=== PATIENT | female | born 1935 | race Caucasian/White ===

== ENCOUNTER 2019-02-18 06:38 | Observation (INO) ==
[2019-02-18] MEDS ORDERED: Naloxone 0.4 MG/ML INJ IVP PRN ×2 (10:29)
[2019-02-18] MEDS ORDERED: OXYCODONE Oral CONC 10 MG/0.5 ML ORAL.SYG SL PRN (10:29)
[2019-02-18] MEDS ORDERED: Ondansetron ODT 4 MG TAB.RAPDIS SL PRN (10:29)
[2019-02-18] MEDS ORDERED: Acetaminophen 325 MG TABLET PO PRN (10:29)
--- NOTE | 2019-02-18 10:33 | Internal Med History&Physical ---
Date of Encounter: 02/18/19 Time of Encounter: 10:33 Internal Medicine - H&P: HPI Chief complaint: abdominal pain History of present illness: Ms. Guzman is a 83 year old female with PMH recurrent UTI, diverticulosis and large hiatal hernia, GERD currently not on PPI who presents with 2 episode of hematemesis. associated with epigastric abdominal pain that is radiating to her chest and left shoulder as well as nausea vomiting and decreased appetite. The patient has chronic arthritis and report frequent use of nonsteroidal anti- inflammatory, the patient denied dark stool or blood per rectum. Reviewing his record revealed the current UA tract infection that was treated recently as an outpatient with antibiotic as better urology recommendation. The patient was admitted for further evaluation and management of hematemesis. Acute surgery service was consulted and arrangements were made to perform upper endoscopy. Past Med Surg Social Fam HX - Past Medical History Medical history: arthritis Psychiatric history: no psych history - Past Surgical History Additional surgical history: knee, wrist x2 - Social History Smoking Status: Former smoker Smokeless Tobacco Status: No Alcohol use: rarely Drug use: none Internal Medicine - H&P: Meds Acetaminophen [Tylenol] 650 mg PO Q6HR PRN #0 tablet 02/19/19 [Rx] Aspirin [Adult Aspirin] 81 mg PO DAILY 02/19/19 [History] Ferrous Sulfate [Iron] 325 mg PO DAILY 02/19/19 [History] Lansoprazole [Prevacid] 30 mg PO BIDAC #60 capsule. 02/19/19 [Rx] Sucralfate [Carafate] 1 gm PO QIDAC #120 tablet 02/19/19 [Rx] Allergy/AdvReac Type Severity Reaction Status Date / Time cetirizine [From Zyrtec] AdvReac See Verified 02/19/19 11:12 Comments All Systems PM: A 10-system review of systems was performed and is negative for pertinent findings except as documented above in the HPI. - Constitutional Constitutional: no chills, no fever(s), no night sweats - EENT Eyes: no change in vision, no discharge, no pain, no photophobia Ears: no ear discharge, no ear pain, no tinnitus Nose, mouth and throat: no dysphagia, no nasal discharge, no neck pain, no sore throat - Cardiovascular Cardiovascular ROS IM: no chest pain, no diaphoresis, no dyspnea, no lightheadedness, no palpitations, no syncope - Respiratory Respiratory: no cough, no dyspnea, no wheezing, no excessive phlegm production - Gastrointestinal Gastrointestinal: abdominal pain, heartburn, hematemesis, nausea, vomiting, no diarrhea, no hematochezia, no melena - Genitourinary Genitourinary: dysuria, no change in urinary stream, no flank pain, no hematuria - Musculoskeletal Musculoskeletal ROS IM: no numbness, no tingling - Integumentary Integumentary IM: no rash, no unusual bruising - Neurological Neurological ROS: no confusion, no convulsions, no focal weakness, no numbness, no tingling, no tremor(s) - Hematologic/Lymphatic Hematologic/Lymphatic: no easy bruising - Constitutional Vitals: Temp Pulse Resp BP Pulse Ox 97.9 F 80 16 100/62 94 02/18/19 09:36 02/18/19 09:36 02/18/19 09:36 02/18/19 09:36 02/18/19 09:36 Exam: . Internal Med - H&P Results - Labs CBC & Chem 7: 02/19/19 09:04 02/19/19 03:32 - Assessment and Plan (1) Hematemesis Status: Resolved Assessment and plan: Upper GI bleeding DD *Gastroenteritis *Gastritis *PUD PLAN: - IVF - NPO - H/H now and q 8 hr - Type and screen 2 U PRBC - Protonix 40 mg IV QD/BID - GI consult-> EGD/Colonoscopy - O2 to keep SpO2 > 92% - CBCD, BMP, INR/PTT in AM - Compression stocking BLE for DVT prophylaxis - We will consulted acute surgical service, the patient is scheduled for upper endoscopy today. I appreciate the prompt response and input Qualifiers: Nausea presence: with nausea Qualified Code(s): K92.0 - Hematemesis (2) Recurrent urinary tract infection Status: Ruled-out Assessment and plan: We would obtain urinalysis, the patient currently is asymptomatic (3) GERD (gastroesophageal reflux disease) Status: Acute Assessment and plan: We will continue proton pump inhibitors Qualifiers: Esophagitis presence: with esophagitis Qualified Code(s): K21.0 - Gastro- esophageal reflux disease with esophagitis (4) Chronic arthritis Status: Acute Assessment and plan: The patient was advised to stop taking nonsteroidal anti-inflammatory for now and consider taking Tylenol extra (5) DVT prophylaxis Status: Acute Assessment and plan: We will place SCDs - Time Spent With Patient Total time spent is greater than 50% in coordination of care (as documented) at patient's floor/unit and/or counseling patient:
[2019-02-18] MEDS: 0.9 % Sodium Chloride 1,000 ML IVC SCH (11:00)
[2019-02-18 11:43] LABS: Basophils % 0.4 %; Eosinophils % 0.1 %; Hematocrit 32.2 % (35.3-44.9); Immature Granulocytes % 0.4 % (0-4); Lymphocytes # 1.2 K/mcL (0.6-4.6); Mean Corpuscular HGB Conc 31.4 g/dL (31.6-35.5); Mean Corpuscular Hemoglobin 29.1 pg (28.0-33.3); Mean Corpuscular Volume 92.8 fL (83.0-100.0); Monocytes # 0.7 K/mcL (0.0-1.3); Monocytes % 6.2 %; Neutrophils # 9.1 K/mcL (1.6-8.9); Platelet Count 410 K/mcL (140-400); Red Blood Count 3.47 M/mcL (3.82-4.97); Red Cell Distribution Width 14.2 % (11.5-14.5); Segmented Neutrophils % 81.9 %
[2019-02-18 11:44] LABS: Hemoglobin 10.1 g/dL (11.5-15.4)
[2019-02-18 12:21] LABS: Bilirubin,Urine Negative (Negative); Blood,Urine Negative (Negative); Clarity,Urine Clear (Clear); Color,Urine Yellow (Yellow); Glucose,Urine (UA) Normal (Normal); Ketones,Urine Negative (Negative); Leukocyte Esterase,Urine Negative (Negative); Nitrite,Urine Negative (Negative); PH,Urine 6.5 pH Units (5.0-8.0); Protein,Urine Negative (Neg-Trace); Specific Gravity,Urine > 1.030 (1.010-1.025); Urobilinogen,Urine Normal (Normal)
[2019-02-18 14:30] LABS: INR 1.1; Prothrombin Time 12.5 Seconds (9.4-12.1)
[2019-02-18 14:32] LABS: Activated Partial Thrombo Time 30.7 Seconds (26.0-36.0)
--- NOTE | 2019-02-18 14:59 | AcuteCare Surgery Consult Note ---
<Francisco Chambers N - Last Filed: 02/18/19 14:55> Date of Encounter: 02/18/19 Time of Encounter: 14:55 Assessment and Plan (1) Hematemesis Current Visit: Yes Status: Acute -83-year-old female with past medical history of GERD and a large hiatal hernia presenting for 1 day history of nausea, vomiting, and coffee-ground emesis -Patient reports heavy profuse over the past few months of 800 mg 1-2 times daily -Denies any history of anticoagulant use, liver disease, melena, hematochezia, or prior peptic ulcer disease or GI bleeds -Plan for EGD today, explained all risks and benefits of the procedure to the patient and patient is in agreement with the plan -Recommend IV PPI and Carafate Qualifiers: Nausea presence: with nausea Qualified Code(s): K92.0 - Hematemesis History of Present Illness Consult date: 02/18/19 History of present illness: Patient is an 83-year-old female with a history of a large hiatal hernia and GERD currently not on PPI who presents to [facility] from [facility] for concerns for hematemesis. Patient reports 1 day history of epigastric abdominal pain radiating to her chest and left shoulder. This is associated with nausea, decreased appetite, and vomiting. Patient reports one episode of vomitus with dark coffee-ground material. The amount of hematemesis progressively decreased but her pain and nausea persisted prompting her to visit the emergency department at [facility]. Patient does report heavy ibuprofen use, stating that she has been taking ibuprofen 800 mg 1-2 times daily for the past few months. She denies any history of liver disease, denies any anticoagulant use, or prior peptic ulcer or GI bleeds. She does state that her stool is dark but attributes that to iron, denies any dark tarry stools. Past Med Surg Social Fam HX - Past Medical History Medical history: arthritis Psychiatric history: no psych history - Past Surgical History Additional surgical history: knee, wrist x2 - Social History Smoking Status: Former smoker Smokeless Tobacco Status: No Alcohol use: rarely Drug use: none Medications and Allergies Allergy/AdvReac Type Severity Reaction Status Date / Time cetirizine [From Zyrtec] AdvReac See Verified 02/02/19 19:44 Comments Review of Systems All systems PM: The remainder of the systems were reviewed and are negative - Constitutional no chills, no fever(s) - Cardiovascular no chest pain - Respiratory no dyspnea - Gastrointestinal abdominal pain, hematemesis, nausea, vomiting, no diarrhea, no hematochezia, no melena - Genitourinary Genitourinary: dysuria - Musculoskeletal arthralgias General Surgery Exam Initial Vital Signs Temp Pulse Resp BP Pulse Ox 97.9 F 80 16 100/62 94 02/18/19 09:36 02/18/19 09:36 02/18/19 09:36 02/18/19 09:36 02/18/19 09:36 - General physical appearance well developed, well nourished - Eyes PERRL, normal ocular movement - ENT normal pinna, normal nares - Neck trachea midline, no venous distension - Respiratory normal expansion, normal respiratory effort - Cardiovascular Cardiovascular exam: Present: RRR - Abdomen Abdomen general surgery: Present: bowel sounds present, soft, tender (Mild tenderness to deep palpation of the epigastric region) - Integumentary Integumentary general surgery: Present: warm and dry - Musculoskeletal Present: normal posture - Psychiatric Psychiatric general surgery: Present: A&Ox3, appropriate Exam Initial Vital Signs Temp Pulse Resp BP Pulse Ox 97.9 F 80 16 100/62 94 02/18/19 09:36 02/18/19 09:36 02/18/19 09:36 02/18/19 09:36 02/18/19 09:36 Results - Labs 02/18/19 11:20 Abnormal lab results RBC 3.47 M/mcL (3.82-4.97) L 02/18/19 11:20 Hgb 10.1 g/dL (11.5-15.4) L D 02/18/19 11:20 Hct 32.2 % (35.3-44.9) L 02/18/19 11:20 MCHC 31.4 g/dL (31.6-35.5) L 02/18/19 11:20 Plt Count 410 K/mcL (140-400) H 02/18/19 11:20 9.1 K/mcL (1.6-8.9) H 02/18/19 11:20 PT 12.5 Seconds (9.4-12.1) H 02/18/19 14:00 Ur Specific [place] > 1.030 (1.010-1.025) H 02/18/19 12:07 All other labs normal. <Brenton Rivers M - Last Filed: 02/18/19 15:19> Date of Encounter: 02/18/19 Review of Systems All systems PM: The remainder of the systems were reviewed and are negative General Surgery Exam Initial Vital Signs Temp Pulse Resp BP Pulse Ox 97.9 F 80 16 100/62 94 02/18/19 09:36 02/18/19 09:36 02/18/19 09:36 02/18/19 09:36 02/18/19 09:36 Exam Initial Vital Signs Temp Pulse Resp BP Pulse Ox 97.9 F 80 16 100/62 94 02/18/19 09:36 02/18/19 09:36 02/18/19 09:36 02/18/19 09:36 02/18/19 09:36 Results - Labs 02/18/19 11:20 Abnormal lab results RBC 3.47 M/mcL (3.82-4.97) L 02/18/19 11:20 Hgb 10.1 g/dL (11.5-15.4) L D 02/18/19 11:20 Hct 32.2 % (35.3-44.9) L 02/18/19 11:20 MCHC 31.4 g/dL (31.6-35.5) L 02/18/19 11:20 Plt Count 410 K/mcL (140-400) H 02/18/19 11:20 9.1 K/mcL (1.6-8.9) H 02/18/19 11:20 PT 12.5 Seconds (9.4-12.1) H 02/18/19 14:00 Ur Specific [place] > 1.030 (1.010-1.025) H 02/18/19 12:07 All other labs normal. - Attending Attestation I examined this patient and my medical decision-making was reviewed with the Resident Physician. I agree with the documented findings, disposition and treatment plan as described except to the extent set forth below. I reviewed the above assessment and evaluation and agree with the above plan. Patient had history of hematemesis yesterday. She does note dark stool but does take iron supplements. She denies any actual blood in the stool. She has some tendernes in the epigastric and left upper quadrant but no tenderness to palpation on examination. I splayed to the patient had think it would be appropriate to proceed with an EGD with IVs sedation. The patient agrees with the above plan.
[2019-02-18] MEDS ORDERED: *HR* FentaNYL (PF) 100 MCG/2 ML VIAL ONE (15:39)
[2019-02-18] MEDS ORDERED: *HR* Midazolam HCl 5 MG/5 ML VIAL IVP ONE ×2 (15:39→15:47)
[2019-02-18] MEDS ORDERED: *HR* FentaNYL (PF) 100 MCG/2 ML VIAL IVP ONE (15:47)
[2019-02-18] MEDS ORDERED: Tetracaine/Benzocaine/Butamben 1 SPRAY AEROSOL MM ONE (15:47)
[2019-02-18] MEDS ORDERED: *HR* Promethazine 25 MG/ML VIAL IVP ONE (15:47)
[2019-02-18] MEDS ORDERED: Simethicone 40 MG/0.6 ML MLS IR ONE (15:47)
--- NOTE | 2019-02-18 15:48 | Pre-Sedation Evaluation ---
Pre-sedation evaluation - Pre-sedation checklist Recent Vitals: Last Vital Signs Temp 98.2 F 02/18/19 14:38 Pulse 73 02/18/19 14:38 Resp 16 02/18/19 14:38 BP 102/61 02/18/19 14:38 Pulse Ox 93 02/18/19 14:38 Airway Assessment: Patient can open mouth completely, TMJ function normal Possible difficult airway: No ASA Classification *see protocol: CLASS III-Severe systemic disease Plan of Care: Pt appropriate candidate for procedure/moderate/conscious sedation
--- NOTE | 2019-02-18 16:24 | Event Note ---
Date of Encounter: 02/18/19 Time of Encounter: 16:22 She underwent EGD without difficulty. Evidence of a very large hiatal hernia with majority of the stomach above the diaphragm. Some slight irritation at the GE junction with no blood within the lumen. Biopsies obtained of the junction. Await pathology results. Okay to advance diet. We will sign off, thank you.
[2019-02-18 18:49] LABS: Basophils # 0.1 K/mcL (0.0-0.2); Basophils % 0.6 %; Eosinophils # 0.1 K/mcL (0.0-0.6); Eosinophils % 0.9 %; Hematocrit 34.8 % (35.3-44.9); Hemoglobin 10.4 g/dL (11.5-15.4); Immature Granulocytes % 0.2 % (0-4); Lymphocytes # 2.1 K/mcL (0.6-4.6); Lymphocytes % 24.1 %; Mean Corpuscular HGB Conc 29.9 g/dL (31.6-35.5); Mean Corpuscular Hemoglobin 28.1 pg (28.0-33.3); Mean Corpuscular Volume 94.1 fL (83.0-100.0); Mean Platelet Volume 9.6 fL (9.4-12.4); Monocytes # 0.7 K/mcL (0.0-1.3); Monocytes % 7.9 %; Neutrophils # 5.9 K/mcL (1.6-8.9); Platelet Count 391 K/mcL (140-400); Red Cell Distribution Width 14.2 % (11.5-14.5); Segmented Neutrophils % 66.3 %
[2019-02-18] MEDS: Sucralfate 1 GM TABLET PO SCH ×2 (20:12→22:08)
[2019-02-18] MEDS: Pantoprazole 40 MG VIAL IVP SCH (22:07)
[2019-02-19 04:12] LABS: INR 1.1; Prothrombin Time 11.9 Seconds (9.4-12.1)
[2019-02-19 04:15] LABS: Activated Partial Thrombo Time 30.8 Seconds (26.0-36.0)
[2019-02-19] MEDS: 0.9 % Sodium Chloride 1,000 ML IVC SCH (04:23)
[2019-02-19 04:24] LABS: Alanine Aminotransferase 13 Units/L (7-52); Albumin 3.1 g/dL (3.5-5.7); Albumin/Globulin Ratio 1.5 (1.1-2.2); Alkaline Phosphatase 62 Units/L (34-104); Aspartate Amino Transferase 15 Units/L (13-39); BUN/Creatinine Ratio 25 (6-26); Bilirubin,Total 0.3 mg/dL (0.3-1.0); Blood Urea Nitrogen 14 mg/dL (8-23); Calcium 8.1 mg/dL (8.6-10.3); Carbon Dioxide 26 mEq/L (23-29); Chloride 111 mEq/L (98-107); Chol/HDL Ratio 2.8 (0-4.9); Cholesterol 117 mg/dL (< 200); Globulin 2.1 g/dL (2.4-3.5); Glucose 99 mg/dL (70-105); HDL Cholesterol 42 mg/dL (40-59); LDL Cholesterol,Calculated 63 mg/dL (0-99); Osmolality,Calculated 295 (280-300); Phosphorous 3.2 mg/dL (2.7-4.5); Potassium 3.8 mEq/L (3.5-5.1); Sodium 142 mEq/L (136-145); Total Protein 5.2 g/dL (6.4-8.9); Triglycerides 60 mg/dL (< 150); eGFR For Non-African Americans > 60 (> 60)
[2019-02-19] MEDS: Pantoprazole 40 MG VIAL IVP SCH (05:11)
[2019-02-19] MEDS: Sucralfate 1 GM TABLET PO SCH ×2 (08:46→12:29)
[2019-02-19 09:14] LABS: Basophils # 0.1 K/mcL (0.0-0.2); Basophils % 0.8 %; Eosinophils # 0.1 K/mcL (0.0-0.6); Eosinophils % 0.8 %; Hematocrit 34.9 % (35.3-44.9); Hemoglobin 10.5 g/dL (11.5-15.4); Immature Granulocytes % 0.3 % (0-4); Lymphocytes # 1.6 K/mcL (0.6-4.6); Lymphocytes % 14.7 %; Mean Corpuscular HGB Conc 30.1 g/dL (31.6-35.5); Mean Corpuscular Hemoglobin 28.8 pg (28.0-33.3); Mean Corpuscular Volume 95.9 fL (83.0-100.0); Mean Platelet Volume 9.4 fL (9.4-12.4); Monocytes # 0.4 K/mcL (0.0-1.3); Monocytes % 3.7 %; Neutrophils # 8.5 K/mcL (1.6-8.9); Platelet Count 379 K/mcL (140-400); Red Blood Count 3.64 M/mcL (3.82-4.97); Red Cell Distribution Width 14.4 % (11.5-14.5); Segmented Neutrophils % 79.7 %
[2019-02-19 09:39] LABS: Platelet Estimate Normal (Normal); Reactive Lymphocytes Present (Not Present)
[2019-02-19 10:50] VITALS: BP 113/64
--- NOTE | 2019-02-19 11:40 | Discharge Summary ---
- NOTES TO OUTPATIENT PROVIDER Notes to Outpatient Provider: Patient with history of hiatal hernia and diverticulosis hospitalized here with hematemesis. She underwent upper GI endoscopy which showed large hiatal hernia and inflamed mucosa in the esophagus. Recommend Protonix and Carafate. Stop taking ibuprofen. Hemoglobin levels have been stable here hematemesis has not resolved. Patient tolerating oral diet and will be discharged home today. Orders not resulted at time of discharge: Pending orders 02/18/19 16:18 Surgical Pathology [PTH] Routine Date of Encounter: 02/19/19 Time of Encounter: 08:45 - Discharge Diagnosis (1) Hematemesis Priority: Primary Status: Resolved Qualifiers: Nausea presence: with nausea Qualified Code(s): K92.0 - Hematemesis (2) Recurrent urinary tract infection Priority: Secondary Status: Ruled-out (3) GERD (gastroesophageal reflux disease) Priority: Secondary Status: Acute Qualifiers: Esophagitis presence: with esophagitis Qualified Code(s): K21.0 - Gastro- esophageal reflux disease with esophagitis (4) Chronic arthritis Priority: Secondary Status: Acute (5) DVT prophylaxis Priority: Secondary Status: Acute (6) Hiatal hernia Priority: Secondary Status: Chronic Hospital course: Ms. Guzman is a 83 year old female Patient with history of hiatal hernia and diverticulosis hospitalized here with hematemesis. She underwent upper GI endoscopy which showed large hiatal hernia and inflamed mucosa in the esophagus. Recommend Protonix and Carafate. Stop taking ibuprofen. Hemoglobin levels have been stable here hematemesis has not resolved. Patient tolerating oral diet and will be discharged home today. Patient had been on antibiotics recently for possible diverticulitis but I reviewed her CT and it showed uncomplicated sigmoid diverticulosis which does not require antibiotics. - Time Spent with Patient Total time spent providing and/or coordinating discharge services: Time spent: Less than 30 minutes (25 min) - Discharge Medications Prescriptions: New Acetaminophen [Tylenol] 650 mg PO Q6HR PRN #0 tablet PRN Reason: Mild Pain/Fever Sucralfate [Carafate] 1 gm PO QIDAC #120 tablet Lansoprazole [Prevacid] 30 mg PO BIDAC #60 capsule.dr Continued Aspirin [Adult Aspirin] 81 mg PO DAILY Discontinued metroNIDAZOLE [Flagyl] 500 mg PO TID Ciprofloxacin HCl [Cipro] 500 mg PO BID cephALEXin [Keflex] 250 mg PO DAILY No Action Ferrous Sulfate [Iron] 325 mg PO DAILY Home Medications: Acetaminophen [Tylenol] 650 mg PO Q6HR PRN #0 tablet 02/19/19 [Rx] Aspirin [Adult Aspirin] 81 mg PO DAILY 02/19/19 [History] Ferrous Sulfate [Iron] 325 mg PO DAILY 02/19/19 [History] Lansoprazole [Prevacid] 30 mg PO BIDAC #60 capsule. 02/19/19 [Rx] Sucralfate [Carafate] 1 gm PO QIDAC #120 tablet 02/19/19 [Rx] Allergies/Adverse Reactions: Allergy/AdvReac Type Severity Reaction Status Date / Time cetirizine [From Zyrtec] AdvReac See Verified 02/19/19 11:12 Comments Date of admission: 02/18/19 09:22 Consults: 02/18/19 10:31 Consult to Physician [CONS] Routine Consulting Provider: Danielle Begum Reason for Consult: GI bleed Time Notified: 10:32 Call Completed: Yes Discharging clinician: Jese Plummer Anticipated date of discharge: 02/19/19 - Constitutional Vitals: Temp Pulse Resp BP Pulse Ox 97.7 F 67 16 113/64 94 02/19/19 10:46 02/19/19 10:46 02/19/19 10:46 02/19/19 10:46 02/19/19 10:46 General appearance: Present: cooperative, A&O X 3, pleasant, no acute distress, answers questions appropriately Exam: . - Respiratory Respiratory exam: Present: CTAB. Absent: accessory muscle use, rales, rhonchi, wheezes - Cardiovascular Cardiovascular exam: Present: RRR, +S1, +S2. Absent: diastolic murmur, gallop, rubs, systolic murmur - GI/Abdominal GI/Abdominal exam: Present: normal bowel sounds, soft, no peritoneal signs. Absent: distended, tenderness - Patient Status Disposition: Home, Self-Care Condition: Good Functional capacity at discharge: independent ambulation Overall status at discharge: patient is progressing back to baseline - Discharge Instructions Follow Up With: Brenton Rivers MD [Partnered Physician] - (in 1-2 weeks for biopsy results) Additional Instructions: Follow-up with PCP in 1 week - Diet and Activity Activity: increase activity as tolerated Diet: advance to your usual diet
== END 2019-02-19 14:20 | disposition home or self-care (01) ==
LOC: 3ANU → SUATTDRO 09:22
PROVIDERS: ADMIT Internal Medicine; ATTEND Internal Medicine
PROC: ENDOEBX (2019-02-18 15:30)

== ENCOUNTER 2020-01-03 08:21 | Inpatient (IN) ==
[2020-01-03] MEDS ORDERED: Naloxone 0.4 MG/ML INJ IVP PRN (11:49)
[2020-01-03 12:10] LABS: Basophils % 0.1 %; Hematocrit 46.6 % (35.3-44.9); Hemoglobin 14.8 g/dL (11.5-15.4); Immature Granulocytes % 0.2 % (0-4); Lymphocytes # 0.4 K/mcL (0.6-4.6); Lymphocytes % 4.9 %; Mean Corpuscular HGB Conc 31.8 g/dL (31.6-35.5); Mean Corpuscular Hemoglobin 30.6 pg (28.0-33.3); Mean Corpuscular Volume 96.3 fL (83.0-100.0); Mean Platelet Volume 10.5 fL (9.4-12.4); Monocytes # 0.2 K/mcL (0.0-1.3); Monocytes % 2.2 %; Neutrophils # 7.6 K/mcL (1.6-8.9); Platelet Count 229 K/mcL (140-400); Red Blood Count 4.84 M/mcL (3.82-4.97); Red Cell Distribution Width 12.8 % (11.5-14.5); Segmented Neutrophils % 92.6 %; White Blood Count 8.2 K/mcL (4.3-11.1)
[2020-01-03 12:27] LABS: BUN/Creatinine Ratio 33 (6-26); Blood Urea Nitrogen 22 mg/dL (8-23); Calcium 9.7 mg/dL (8.6-10.3); Carbon Dioxide 25 mEq/L (23-29); Chloride 109 mEq/L (98-107); Glucose 141 mg/dL (70-105); Osmolality,Calculated 304 (280-300); Potassium 3.5 mEq/L (3.5-5.1); Sodium 144 mEq/L (136-145); eGFR For African Americans > 60 (> 60); eGFR For Non-African Americans > 60 (> 60)
[2020-01-03] MEDS: Ondansetron 4 MG/2 ML VIAL IVP PRN (13:56)
[2020-01-03] MEDS ORDERED: Morphine Sulfate 2 MG/ML SYRINGE IVP ONE (14:27)
[2020-01-03] MEDS: Gabapentin 100 MG CAPSULE PO SCH ×2 (14:58→21:24)
[2020-01-03] MEDS ORDERED: *HR* Heparin 5,000 UNIT/ML VIAL ONE (15:13)
[2020-01-03] MEDS: *HR* Heparin 5,000 UNIT/ML VIAL SQ SCH ×2 (15:15→21:23)
[2020-01-03] MEDS: Pantoprazole 40 MG VIAL IVP SCH (17:18)
[2020-01-03] MEDS ORDERED: Melatonin 3 MG TABLET PO PRN (20:24)
[2020-01-03] MEDS ORDERED: Acetaminophen 325 MG TABLET PO PRN (20:27)
[2020-01-03] MEDS ORDERED: *HR* HYDROcodone/Acet 5/325 mg TABLET PO PRN (20:27)
[2020-01-04] MEDS: Ondansetron 4 MG/2 ML VIAL IVP PRN (02:31)
[2020-01-04] MEDS: Pantoprazole 40 MG VIAL IVP SCH (05:11)
[2020-01-04] MEDS: *HR* Heparin 5,000 UNIT/ML VIAL SQ SCH ×2 (05:14→16:08)
[2020-01-04] MEDS ORDERED: *HR* Promethazine 25 MG/ML VIAL IVP PRN ×2 (05:14→13:45)
[2020-01-04 06:44] LABS: BUN/Creatinine Ratio 36 (6-26); Blood Urea Nitrogen 27 mg/dL (8-23); Calcium 9.9 mg/dL (8.6-10.3); Carbon Dioxide 28 mEq/L (23-29); Chloride 109 mEq/L (98-107); Glucose 141 mg/dL (70-105); Osmolality,Calculated 311 (280-300); Potassium 3.7 mEq/L (3.5-5.1); Sodium 147 mEq/L (136-145); eGFR For African Americans > 60 (> 60); eGFR For Non-African Americans > 60 (> 60)
[2020-01-04] MEDS ORDERED: Aspirin Enteric Coated 81 MG Tablet PO SCH (09:00)
[2020-01-04] MEDS ORDERED: 0.9 % Sodium Chloride 1,000 ML IVC SCH ×2 (10:00→21:58)
[2020-01-04] MEDS: Gabapentin 100 MG CAPSULE PO SCH ×2 (10:09→16:07)
[2020-01-04] MEDS ORDERED: Ondansetron 4 MG/2 ML VIAL IVP SCH (12:00)
[2020-01-04] MEDS ORDERED: cefTRIAXone 1,000 MG in Water for inj. (sterile) 10 ML IVP SCH (14:00)
[2020-01-04] MEDS ORDERED: Ondansetron 4 MG/2 ML VIAL IVP PRN (17:28)
[2020-01-04] MEDS ORDERED: *HR* HYDROmorphone PF 0.5 MG/0.5 ML SYRINGE IVP PRN (17:28)
[2020-01-04] MEDS ORDERED: *HR* Rocuronium Bromide 50 MG/5 ML VIAL ONE (17:39)
[2020-01-04] MEDS ORDERED: *HR* Propofol 200 MG/20 ML VIAL IVP ONE (17:39)
[2020-01-04] MEDS ORDERED: Dexamethasone 4 MG/ML VIAL ONE (17:39)
[2020-01-04] MEDS ORDERED: Lidocaine -MPF 2% 2 ML VIAL ONE (17:39)
[2020-01-04] MEDS ORDERED: *HR* FentaNYL (PF) 100 MCG/2 ML VIAL ONE (17:39)
[2020-01-04] MEDS ORDERED: *HR* Succinylcholine 200 MG/10 ML VIAL IVP ONE (17:39)
[2020-01-04] MEDS ORDERED: CefOXitin 1,000 MG VIAL ONE ×2 (17:59→20:14)
[2020-01-04] MEDS ORDERED: Albumin Human 5% 12.5 GM/250 ML IV.SOLN ONE (19:01)
[2020-01-04] MEDS ORDERED: *HR* HYDROMORPHONE 2 MG/ML VIAL ONE (19:09)
[2020-01-04] MEDS: *HR* Labetalol 20 MG/4 ML SYRINGE IVP PRN ×3 (20:51→21:23)
[2020-01-04] MEDS ORDERED: *HR* Labetalol 20 MG/4 ML SYRINGE IVP PRN (21:58)
[2020-01-04] MEDS ORDERED: Morphine Sulfate 2 MG/ML SYRINGE IVP PRN (21:58)
[2020-01-04] MEDS ORDERED: Naloxone 0.4 MG/ML INJ IVP PRN (21:58)
[2020-01-05 01:47] LABS: Hematocrit 44.4 % (35.3-44.9); Hemoglobin 13.9 g/dL (11.5-15.4); Mean Corpuscular HGB Conc 31.3 g/dL (31.6-35.5); Mean Corpuscular Hemoglobin 30.3 pg (28.0-33.3); Mean Corpuscular Volume 96.9 fL (83.0-100.0); Mean Platelet Volume 10.8 fL (9.4-12.4); Platelet Count 205 K/mcL (140-400); Red Blood Count 4.58 M/mcL (3.82-4.97); Red Cell Distribution Width 13.1 % (11.5-14.5)
[2020-01-05 02:11] LABS: BUN/Creatinine Ratio 48 (6-26); Blood Urea Nitrogen 27 mg/dL (8-23); Calcium 8.8 mg/dL (8.6-10.3); Carbon Dioxide 27 mEq/L (23-29); Chloride 113 mEq/L (98-107); Glucose 136 mg/dL (70-105); Osmolality,Calculated 313 (280-300); Potassium 3.5 mEq/L (3.5-5.1); Sodium 148 mEq/L (136-145); eGFR For African Americans > 60 (> 60); eGFR For Non-African Americans > 60 (> 60)
[2020-01-05] MEDS: *HR* Heparin 5,000 UNIT/ML VIAL SQ SCH ×4 (04:17→21:03)
[2020-01-05] MEDS: Pantoprazole 40 MG VIAL IVP SCH ×2 (05:47→18:08)
[2020-01-05] MEDS ORDERED: D5% in 0.45% NACL w KCl 20 MEQ/1,000 ML MLS IVC SCH (08:15)
[2020-01-05] MEDS: D5% in 0.45% NACL w KCl 20 MEQ/1,000 ML MLS IVC SCH ×2 (08:58→18:40)
[2020-01-05] MEDS ORDERED: polyethylene glycoL 3350 17 GM POWD.PACK PO SCH (09:00)
[2020-01-05] MEDS ORDERED: cefTRIAXone 1,000 MG in Water for inj. (sterile) 10 ML IVP SCH (09:00)
[2020-01-06] MEDS: D5% in 0.45% NACL w KCl 20 MEQ/1,000 ML MLS IVC SCH (03:52)
[2020-01-06 04:47] LABS: Hematocrit 46.1 % (35.3-44.9); Hemoglobin 14.1 g/dL (11.5-15.4); Mean Corpuscular HGB Conc 30.6 g/dL (31.6-35.5); Mean Corpuscular Hemoglobin 29.9 pg (28.0-33.3); Mean Corpuscular Volume 97.9 fL (83.0-100.0); Mean Platelet Volume 10.8 fL (9.4-12.4); Platelet Count 179 K/mcL (140-400); Red Blood Count 4.71 M/mcL (3.82-4.97); Red Cell Distribution Width 13.2 % (11.5-14.5); White Blood Count 15.3 K/mcL (4.3-11.1)
[2020-01-06 05:07] LABS: BUN/Creatinine Ratio 35 (6-26); Blood Urea Nitrogen 20 mg/dL (8-23); Calcium 8.8 mg/dL (8.6-10.3); Carbon Dioxide 29 mEq/L (23-29); Chloride 111 mEq/L (98-107); Glucose 138 mg/dL (70-105); Osmolality,Calculated 303 (280-300); Potassium 3.6 mEq/L (3.5-5.1); Sodium 144 mEq/L (136-145); eGFR For African Americans > 60 (> 60); eGFR For Non-African Americans > 60 (> 60)
[2020-01-06] MEDS: Pantoprazole 40 MG VIAL IVP SCH ×2 (05:33→17:44)
[2020-01-06] MEDS: *HR* Heparin 5,000 UNIT/ML VIAL SQ SCH ×3 (05:34→21:26)
[2020-01-06] MEDS ORDERED: MetroNIDAZOLE 500 MG/100 ML 500 MG/100 ML BAG IVPB SCH (08:00)
[2020-01-06] MEDS: Piperacillin/Tazobactam 3.375 GM in 0.9 % Sodium Chloride Mini Bag 100 ML IVPB SCH ×2 (08:03→16:43)
[2020-01-06] MEDS: Ringers Solution, Lactated 1,000 ML IVC SCH (18:11)
[2020-01-06] MEDS ORDERED: Acetaminophen IV 1,000 MG/100 ML INFUS..BTL IVPB ONE (18:48)
[2020-01-07] MEDS: Piperacillin/Tazobactam 3.375 GM in 0.9 % Sodium Chloride Mini Bag 100 ML IVPB SCH ×3 (00:06→16:28)
[2020-01-07] MEDS: Pantoprazole 40 MG VIAL IVP SCH ×2 (06:09→17:13)
[2020-01-07] MEDS: *HR* Heparin 5,000 UNIT/ML VIAL SQ SCH ×3 (06:10→22:43)
[2020-01-07] MEDS: Ringers Solution, Lactated 1,000 ML IVC SCH (07:05)
[2020-01-07 08:33] LABS: Basophils % 0.1 %; Hematocrit 46.3 % (35.3-44.9); Hemoglobin 13.9 g/dL (11.5-15.4); Immature Granulocytes % 0.5 % (0-4); Lymphocytes # 0.8 K/mcL (0.6-4.6); Lymphocytes % 5.4 %; Mean Corpuscular Hemoglobin 30.6 pg (28.0-33.3); Monocytes # 1.1 K/mcL (0.0-1.3); Monocytes % 7.4 %; Neutrophils # 12.8 K/mcL (1.6-8.9); Platelet Count 158 K/mcL (140-400); Red Blood Count 4.54 M/mcL (3.82-4.97); Red Cell Distribution Width 13.4 % (11.5-14.5); Segmented Neutrophils % 86.6 %; White Blood Count 14.8 K/mcL (4.3-11.1)
[2020-01-07 08:49] LABS: BUN/Creatinine Ratio 40 (6-26); Blood Urea Nitrogen 29 mg/dL (8-23); Calcium 8.8 mg/dL (8.6-10.3); Carbon Dioxide 25 mEq/L (23-29); Chloride 111 mEq/L (98-107); Glucose 103 mg/dL (70-105); Osmolality,Calculated 308 (280-300); Potassium 3.6 mEq/L (3.5-5.1); Sodium 146 mEq/L (136-145); eGFR For African Americans > 60 (> 60); eGFR For Non-African Americans > 60 (> 60)
[2020-01-07] MEDS ORDERED: Ringers Solution, Lactated 250 ML IVC PRN (11:43)
[2020-01-07] MEDS: Ondansetron 4 MG/2 ML VIAL IVP PRN (18:02)
[2020-01-07] MEDS: *HR* Metoprolol 5 MG/5 ML VIAL IVP PRN (18:02)
[2020-01-08] MEDS: Piperacillin/Tazobactam 3.375 GM in 0.9 % Sodium Chloride Mini Bag 100 ML IVPB SCH ×4 (00:36→23:14)
[2020-01-08] MEDS: *HR* Metoprolol 5 MG/5 ML VIAL IVP PRN (03:20)
[2020-01-08 04:45] LABS: Hematocrit 39.1 % (35.3-44.9); Mean Corpuscular HGB Conc 30.2 g/dL (31.6-35.5); Mean Corpuscular Hemoglobin 30.1 pg (28.0-33.3); Mean Corpuscular Volume 99.7 fL (83.0-100.0); Mean Platelet Volume 11.6 fL (9.4-12.4); Platelet Count 183 K/mcL (140-400); Red Blood Count 3.92 M/mcL (3.82-4.97); Red Cell Distribution Width 13.4 % (11.5-14.5); White Blood Count 11.8 K/mcL (4.3-11.1)
[2020-01-08 05:01] LABS: Hemoglobin 11.8 g/dL (11.5-15.4)
[2020-01-08 05:04] LABS: BUN/Creatinine Ratio 41 (6-26); Blood Urea Nitrogen 22 mg/dL (8-23); Calcium 8.4 mg/dL (8.6-10.3); Carbon Dioxide 26 mEq/L (23-29); Chloride 110 mEq/L (98-107); Glucose 124 mg/dL (70-105); Magnesium 2.1 mg/dL (1.6-2.6); Osmolality,Calculated 303 (280-300); Phosphorous 2.1 mg/dL (2.7-4.5); Potassium 3.1 mEq/L (3.5-5.1); Sodium 144 mEq/L (136-145); eGFR For African Americans > 60 (> 60); eGFR For Non-African Americans > 60 (> 60)
[2020-01-08] MEDS: *HR* Heparin 5,000 UNIT/ML VIAL SQ SCH ×3 (05:30→23:13)
[2020-01-08] MEDS: Pantoprazole 40 MG VIAL IVP SCH ×2 (05:30→15:29)
[2020-01-08] MEDS ORDERED: Potassium Phosphate 44 MEQ in 0.9 % Sodium Chloride 250 ML IVPB ONE (07:31)
[2020-01-08] MEDS: D5% in 0.45% NACL w KCl 20 MEQ/1,000 ML MLS IVC SCH (10:36)
[2020-01-08] MEDS: Gabapentin 100 MG CAPSULE PO SCH (15:27)
[2020-01-09 04:32] LABS: Hematocrit 38.6 % (35.3-44.9); Hemoglobin 11.9 g/dL (11.5-15.4); Mean Corpuscular HGB Conc 30.8 g/dL (31.6-35.5); Mean Corpuscular Volume 97.2 fL (83.0-100.0); Mean Platelet Volume 11.1 fL (9.4-12.4); Platelet Count 206 K/mcL (140-400); Red Blood Count 3.97 M/mcL (3.82-4.97); Red Cell Distribution Width 13.2 % (11.5-14.5); White Blood Count 10.5 K/mcL (4.3-11.1)
[2020-01-09 04:50] LABS: BUN/Creatinine Ratio 27 (6-26); Blood Urea Nitrogen 12 mg/dL (8-23); Calcium 8.2 mg/dL (8.6-10.3); Carbon Dioxide 30 mEq/L (23-29); Chloride 107 mEq/L (98-107); Glucose 121 mg/dL (70-105); Magnesium 1.9 mg/dL (1.6-2.6); Osmolality,Calculated 295 (280-300); Phosphorous 2.5 mg/dL (2.7-4.5); Potassium 3.3 mEq/L (3.5-5.1); Sodium 142 mEq/L (136-145); eGFR For African Americans > 60 (> 60); eGFR For Non-African Americans > 60 (> 60)
[2020-01-09] MEDS: *HR* Heparin 5,000 UNIT/ML VIAL SQ SCH ×3 (05:16→21:21)
[2020-01-09] MEDS ORDERED: Levalbuterol Neb 1.25 MG/3 ML IH STA (05:23)
[2020-01-09] MEDS ORDERED: Furosemide 20 MG/2 ML VIAL IVP ONE (08:25)
[2020-01-09] MEDS ORDERED: Potassium Phosphate 44 MEQ in 0.9 % Sodium Chloride 250 ML IVPB ONE (14:12)
[2020-01-09] MEDS: *HR* Metoprolol 5 MG/5 ML VIAL IVP PRN (15:40)
[2020-01-09] MEDS: Levalbuterol Neb 1.25 MG/3 ML IH SCH ×2 (15:55→21:45)
[2020-01-10] MEDS: *HR* Metoprolol 5 MG/5 ML VIAL IVP PRN ×2 (02:48→10:41)
[2020-01-10] MEDS: Levalbuterol Neb 1.25 MG/3 ML IH SCH ×4 (03:19→21:42)
[2020-01-10 03:58] LABS: ABG Base Excess 7 mEq/L (-2 to 3); ABG HCO3 32 mEq/L (21-27); ABG Oxygen Saturation 85 % (95-98); ABG PCO2 43 mmHg (35-45); ABG PH 7.48 pH Units (7.32-7.45); ABG PO2 47 mmHg (85-104); ABG TCO2 33 mEq/L (20-26)
[2020-01-10] MEDS ORDERED: Furosemide 20 MG/2 ML VIAL IVP ONE (04:01)
[2020-01-10] MEDS ORDERED: 0.9 % Sodium Chloride 500 ML IVC SCH (04:15)
[2020-01-10] MEDS ORDERED: DilTIAZem 50 MG in 0.9 % Sodium Chloride 40 ML IVC SCH (04:15)
[2020-01-10 04:41] LABS: Hematocrit 41.4 % (35.3-44.9); Hemoglobin 13.2 g/dL (11.5-15.4); Mean Corpuscular HGB Conc 31.9 g/dL (31.6-35.5); Mean Corpuscular Hemoglobin 30.6 pg (28.0-33.3); Mean Corpuscular Volume 96.1 fL (83.0-100.0); Platelet Count 233 K/mcL (140-400); Red Blood Count 4.31 M/mcL (3.82-4.97); Red Cell Distribution Width 13.1 % (11.5-14.5); White Blood Count 13.4 K/mcL (4.3-11.1)
[2020-01-10 05:03] LABS: BUN/Creatinine Ratio 23 (6-26); Blood Urea Nitrogen 10 mg/dL (8-23); Calcium 8.5 mg/dL (8.6-10.3); Carbon Dioxide 27 mEq/L (23-29); Chloride 103 mEq/L (98-107); Glucose 129 mg/dL (70-105); Magnesium 1.8 mg/dL (1.6-2.6); Osmolality,Calculated 293 (280-300); Phosphorous 2.7 mg/dL (2.7-4.5); Potassium 3.4 mEq/L (3.5-5.1); Sodium 141 mEq/L (136-145); eGFR For African Americans > 60 (> 60); eGFR For Non-African Americans > 60 (> 60)
[2020-01-10] MEDS: *HR* Heparin 5,000 UNIT/ML VIAL SQ SCH (05:12)
[2020-01-10] MEDS ORDERED: *HR* Metoprolol 5 MG/5 ML VIAL IVP ONE (06:05)
[2020-01-10] MEDS ORDERED: Furosemide 40 MG/4 ML VIAL IVP ONE (08:41)
[2020-01-10] MEDS ORDERED: *HR* Heparin 5,000 UNIT/ML VIAL IVP PRN ×3 (09:22→15:44)
[2020-01-10] MEDS ORDERED: *HR* Heparin 5,000 UNIT/ML VIAL IVP ONE (09:22)
[2020-01-10 10:21] LABS: Hematocrit 40.8 % (35.3-44.9); Mean Corpuscular HGB Conc 31.9 g/dL (31.6-35.5); Mean Corpuscular Hemoglobin 30.2 pg (28.0-33.3); Mean Corpuscular Volume 94.9 fL (83.0-100.0); Mean Platelet Volume 11.3 fL (9.4-12.4); Platelet Count 213 K/mcL (140-400); Red Cell Distribution Width 13.3 % (11.5-14.5); White Blood Count 13.5 K/mcL (4.3-11.1)
[2020-01-10 10:25] LABS: Heparin anti-factor XA UFH < 0.04 IU/mL (0.30-0.70)
[2020-01-10 10:26] LABS: INR 1.2; Prothrombin Time 13.3 Seconds (9.4-12.1)
[2020-01-10] MEDS: Heparin 25,000 UNIT/250 ML D5W 25,000 UNIT/250 ML IV.SOLN IVC SCH ×2 (10:30→16:09)
[2020-01-10] MEDS ORDERED: Furosemide 40 MG/4 ML VIAL IVP SCH ×2 (12:00→21:00)
[2020-01-10] MEDS ORDERED: Isovue-370 500 ML BOTTLE IVP ONE (12:21)
[2020-01-10 14:47] LABS: VBG HCO3 33 mEq/L (21-27); VBG PCO2 47 mmHg (41-51); VBG PH 7.46 pH Units (7.32-7.42); VBG PO2 181 mmHg (25-50)
[2020-01-10] MEDS: Piperacillin/Tazobactam 3.375 GM in 0.9 % Sodium Chloride Mini Bag 100 ML IVPB SCH ×2 (16:01→23:45)
[2020-01-10 16:30] LABS: Hematocrit 39.9 % (35.3-44.9); Hemoglobin 12.8 g/dL (11.5-15.4); Mean Corpuscular HGB Conc 32.1 g/dL (31.6-35.5); Mean Corpuscular Hemoglobin 30.5 pg (28.0-33.3); Mean Platelet Volume 10.4 fL (9.4-12.4); Platelet Count 228 K/mcL (140-400); Red Cell Distribution Width 13.2 % (11.5-14.5); White Blood Count 12.9 K/mcL (4.3-11.1)
[2020-01-10 17:11] LABS: Heparin anti-factor XA UFH 0.09 IU/mL (0.30-0.70); INR 1.3; Prothrombin Time 14.3 Seconds (9.4-12.1)
[2020-01-10] MEDS: *HR* Metoprolol 5 MG/5 ML VIAL IVP SCH ×2 (18:01→23:45)
[2020-01-10] MEDS: Lactobacillus 1 EACH CAP.SPRINK PO SCH (21:32)
[2020-01-11 00:31] LABS: Basophils % 0.1 %; Eosinophils # 0.1 K/mcL (0.0-0.6); Hemoglobin 11.7 g/dL (11.5-15.4); Immature Granulocytes % 1.2 % (0-4); Lymphocytes % 7.3 %; Mean Corpuscular HGB Conc 31.6 g/dL (31.6-35.5); Mean Corpuscular Hemoglobin 29.9 pg (28.0-33.3); Mean Corpuscular Volume 94.6 fL (83.0-100.0); Mean Platelet Volume 11.1 fL (9.4-12.4); Monocytes # 1.2 K/mcL (0.0-1.3); Platelet Count 233 K/mcL (140-400); Red Blood Count 3.91 M/mcL (3.82-4.97); Red Cell Distribution Width 13.2 % (11.5-14.5); Segmented Neutrophils % 81.4 %; White Blood Count 13.5 K/mcL (4.3-11.1)
[2020-01-11 00:50] LABS: BUN/Creatinine Ratio 23 (6-26); Blood Urea Nitrogen 12 mg/dL (8-23); Carbon Dioxide 30 mEq/L (23-29); Chloride 99 mEq/L (98-107); Glucose 129 mg/dL (70-105); Magnesium 1.8 mg/dL (1.6-2.6); Osmolality,Calculated 287 (280-300); Phosphorous 2.6 mg/dL (2.7-4.5); Potassium 3.1 mEq/L (3.5-5.1); Sodium 138 mEq/L (136-145); eGFR For African Americans > 60 (> 60); eGFR For Non-African Americans > 60 (> 60)
[2020-01-11] MEDS: Heparin 25,000 UNIT/250 ML D5W 25,000 UNIT/250 ML IV.SOLN IVC SCH ×3 (01:52→09:39)
[2020-01-11] MEDS: Levalbuterol Neb 1.25 MG/3 ML IH SCH ×4 (03:28→22:40)
[2020-01-11] MEDS: *HR* Metoprolol 5 MG/5 ML VIAL IVP SCH (06:02)
[2020-01-11 06:28] LABS: ABG Base Excess 12 mEq/L (-2 to 3); ABG HCO3 36 mEq/L (21-27); ABG Oxygen Saturation 97 % (95-98); ABG PCO2 43 mmHg (35-45); ABG PH 7.53 pH Units (7.32-7.45); ABG PO2 84 mmHg (85-104); ABG TCO2 37 mEq/L (20-26); Blood Gas Modality AVAPS; Blood Gas VT 450 cc
[2020-01-11 08:40] LABS: RBC,Pleural Fluid 0.002 M/mcL
[2020-01-11 08:47] LABS: Total Protein,Pleural Fluid 3.4 g/dL
[2020-01-11 08:48] LABS: LDH,Pleural Fluid 256 Units/L (No Ref Range); Total Protein,Pleural Fluid < 3.0 g/dL
[2020-01-11 08:50] LABS: RBC,Pleural Fluid 0.002 M/mcL
[2020-01-11] MEDS: Lactobacillus 1 EACH CAP.SPRINK PO SCH ×2 (09:30→20:02)
[2020-01-11] MEDS: Piperacillin/Tazobactam 3.375 GM in 0.9 % Sodium Chloride Mini Bag 100 ML IVPB SCH ×2 (09:31→16:55)
[2020-01-11 09:41] LABS: Basophils,Pleural Fluid 0 %; Eosinophils,Pleural Fluid 0 %
[2020-01-11 09:42] LABS: Appearance of Pleural Fl Clear (Clear)
[2020-01-11 09:52] LABS: Basophils,Pleural Fluid 0 %; Eosinophils,Pleural Fluid 0 %
[2020-01-11 09:53] LABS: Appearance of Pleural Fl Clear (Clear)
[2020-01-11] MEDS ORDERED: *HR* Metoprolol 5 MG/5 ML VIAL IVP PRN (11:59)
[2020-01-11] MEDS: *HR* Heparin 5,000 UNIT/ML VIAL IVP PRN (15:32)
[2020-01-12] MEDS: Piperacillin/Tazobactam 3.375 GM in 0.9 % Sodium Chloride Mini Bag 100 ML IVPB SCH ×3 (00:41→16:24)
[2020-01-12] MEDS: Calcium Gluconate 1gm/50mL 1 GM/50 ML BAG IVPB SCH ×2 (00:42→01:17)
[2020-01-12 02:07] LABS: Basophils % 0.3 %; Eosinophils # 0.1 K/mcL (0.0-0.6); Eosinophils % 0.7 %; Hematocrit 36.6 % (35.3-44.9); Hemoglobin 11.6 g/dL (11.5-15.4); Immature Granulocytes % 1.1 % (0-4); Lymphocytes # 1.5 K/mcL (0.6-4.6); Lymphocytes % 11.4 %; Mean Corpuscular HGB Conc 31.7 g/dL (31.6-35.5); Mean Corpuscular Hemoglobin 30.5 pg (28.0-33.3); Mean Corpuscular Volume 96.3 fL (83.0-100.0); Mean Platelet Volume 11.2 fL (9.4-12.4); Monocytes # 1.2 K/mcL (0.0-1.3); Monocytes % 8.8 %; Neutrophils # 10.3 K/mcL (1.6-8.9); Platelet Count 253 K/mcL (140-400); Red Cell Distribution Width 13.1 % (11.5-14.5); Segmented Neutrophils % 77.7 %; White Blood Count 13.2 K/mcL (4.3-11.1)
[2020-01-12 02:28] LABS: BUN/Creatinine Ratio 25 (6-26); Blood Urea Nitrogen 13 mg/dL (8-23); Calcium 8.6 mg/dL (8.6-10.3); Carbon Dioxide 30 mEq/L (23-29); Chloride 99 mEq/L (98-107); Glucose 114 mg/dL (70-105); Magnesium 1.7 mg/dL (1.6-2.6); Osmolality,Calculated 281 (280-300); Sodium 135 mEq/L (136-145); eGFR For African Americans > 60 (> 60); eGFR For Non-African Americans > 60 (> 60)
[2020-01-12 02:44] LABS: Platelet Estimate Normal (Normal); Reactive Lymphocytes Present (Not Present)
[2020-01-12] MEDS: Levalbuterol Neb 1.25 MG/3 ML IH SCH ×4 (04:26→22:32)
[2020-01-12 04:28] LABS: ABG Base Excess 10 mEq/L (-2 to 3); ABG HCO3 33 mEq/L (21-27); ABG Oxygen Saturation 96 % (95-98); ABG PCO2 37 mmHg (35-45); ABG PH 7.55 pH Units (7.32-7.45); ABG PO2 73 mmHg (85-104); ABG TCO2 34 mEq/L (20-26); Blood Gas VT 450 cc
[2020-01-12] MEDS: Lactobacillus 1 EACH CAP.SPRINK PO SCH ×2 (08:25→21:40)
[2020-01-12] MEDS: Heparin 25,000 UNIT/250 ML D5W 25,000 UNIT/250 ML IV.SOLN IVC SCH (08:26)
[2020-01-13] MEDS: Piperacillin/Tazobactam 3.375 GM in 0.9 % Sodium Chloride Mini Bag 100 ML IVPB SCH ×3 (00:15→16:09)
[2020-01-13 02:27] LABS: Basophils # 0.1 K/mcL (0.0-0.2); Basophils % 0.4 %; Eosinophils # 0.1 K/mcL (0.0-0.6); Eosinophils % 0.9 %; Hematocrit 36.5 % (35.3-44.9); Hemoglobin 11.2 g/dL (11.5-15.4); Immature Granulocytes % 1.2 % (0-4); Lymphocytes # 1.4 K/mcL (0.6-4.6); Lymphocytes % 11.8 %; Mean Corpuscular HGB Conc 30.7 g/dL (31.6-35.5); Mean Corpuscular Hemoglobin 29.8 pg (28.0-33.3); Mean Corpuscular Volume 97.1 fL (83.0-100.0); Mean Platelet Volume 12.2 fL (9.4-12.4); Monocytes # 0.9 K/mcL (0.0-1.3); Monocytes % 7.6 %; Neutrophils # 9.4 K/mcL (1.6-8.9); Platelet Count 235 K/mcL (140-400); Red Blood Count 3.76 M/mcL (3.82-4.97); Red Cell Distribution Width 13.2 % (11.5-14.5); Segmented Neutrophils % 78.1 %
[2020-01-13 02:34] LABS: VBG HCO3 29 mEq/L (21-27); VBG PCO2 39 mmHg (41-51); VBG PH 7.48 pH Units (7.32-7.42); VBG PO2 88 mmHg (25-50)
[2020-01-13] MEDS: *HR* Heparin 5,000 UNIT/ML VIAL IVP PRN (02:45)
[2020-01-13 02:46] LABS: BUN/Creatinine Ratio 26 (6-26); Blood Urea Nitrogen 14 mg/dL (8-23); Calcium 8.1 mg/dL (8.6-10.3); Carbon Dioxide 26 mEq/L (23-29); Chloride 101 mEq/L (98-107); Glucose 104 mg/dL (70-105); Magnesium 1.8 mg/dL (1.6-2.6); Osmolality,Calculated 281 (280-300); Potassium 4.3 mEq/L (3.5-5.1); Sodium 135 mEq/L (136-145); eGFR For African Americans > 60 (> 60); eGFR For Non-African Americans > 60 (> 60)
[2020-01-13] MEDS: Levalbuterol Neb 1.25 MG/3 ML IH SCH ×4 (04:48→21:27)
[2020-01-13] MEDS: Heparin 25,000 UNIT/250 ML D5W 25,000 UNIT/250 ML IV.SOLN IVC SCH (07:42)
[2020-01-13] MEDS: Lactobacillus 1 EACH CAP.SPRINK PO SCH ×2 (08:23→22:41)
[2020-01-13] MEDS: *HR* Rivaroxaban 10 MG TABLET PO SCH (17:24)
[2020-01-14] MEDS: Piperacillin/Tazobactam 3.375 GM in 0.9 % Sodium Chloride Mini Bag 100 ML IVPB SCH (00:17)
[2020-01-14] MEDS: Levalbuterol Neb 1.25 MG/3 ML IH SCH ×4 (04:27→21:46)
[2020-01-14 07:35] LABS: Basophils # 0.1 K/mcL (0.0-0.2); Basophils % 0.4 %; Eosinophils # 0.1 K/mcL (0.0-0.6); Eosinophils % 0.8 %; Hemoglobin 11.9 g/dL (11.5-15.4); Immature Granulocytes % 0.9 % (0-4); Lymphocytes # 1.1 K/mcL (0.6-4.6); Lymphocytes % 9.3 %; Mean Corpuscular HGB Conc 31.3 g/dL (31.6-35.5); Mean Corpuscular Hemoglobin 30.6 pg (28.0-33.3); Mean Corpuscular Volume 97.7 fL (83.0-100.0); Monocytes # 0.8 K/mcL (0.0-1.3); Monocytes % 6.2 %; Neutrophils # 10.1 K/mcL (1.6-8.9); Platelet Count 244 K/mcL (140-400); Red Blood Count 3.89 M/mcL (3.82-4.97); Red Cell Distribution Width 13.1 % (11.5-14.5); Segmented Neutrophils % 82.4 %; White Blood Count 12.2 K/mcL (4.3-11.1)
[2020-01-14 07:55] LABS: BUN/Creatinine Ratio 17 (6-26); Blood Urea Nitrogen 10 mg/dL (8-23); Calcium 8.2 mg/dL (8.6-10.3); Carbon Dioxide 30 mEq/L (23-29); Chloride 100 mEq/L (98-107); Glucose 99 mg/dL (70-105); Magnesium 1.9 mg/dL (1.6-2.6); Osmolality,Calculated 279 (280-300); Sodium 135 mEq/L (136-145); eGFR For African Americans > 60 (> 60); eGFR For Non-African Americans > 60 (> 60)
[2020-01-14] MEDS: levoFLOXacin 500 MG TABLET PO SCH (09:34)
[2020-01-14] MEDS: Lactobacillus 1 EACH CAP.SPRINK PO SCH ×2 (09:34→20:17)
[2020-01-14 09:48] LABS: VBG HCO3 29 mEq/L (21-27); VBG PCO2 45 mmHg (41-51); VBG PH 7.42 pH Units (7.32-7.42); VBG PO2 110 mmHg (25-50)
[2020-01-14] MEDS: *HR* Rivaroxaban 10 MG TABLET PO SCH (17:37)
[2020-01-15 01:48] LABS: Basophils % 0.2 %; Eosinophils # 0.1 K/mcL (0.0-0.6); Eosinophils % 0.5 %; Hemoglobin 12.4 g/dL (11.5-15.4); Immature Granulocytes % 0.6 % (0-4); Lymphocytes # 1.1 K/mcL (0.6-4.6); Lymphocytes % 7.9 %; Mean Corpuscular HGB Conc 31.8 g/dL (31.6-35.5); Mean Corpuscular Hemoglobin 30.5 pg (28.0-33.3); Mean Corpuscular Volume 95.8 fL (83.0-100.0); Mean Platelet Volume 10.8 fL (9.4-12.4); Monocytes # 0.9 K/mcL (0.0-1.3); Monocytes % 6.1 %; Neutrophils # 11.9 K/mcL (1.6-8.9); Platelet Count 264 K/mcL (140-400); Red Blood Count 4.07 M/mcL (3.82-4.97); Red Cell Distribution Width 12.8 % (11.5-14.5); Segmented Neutrophils % 84.7 %
[2020-01-15 02:05] LABS: BUN/Creatinine Ratio 23 (6-26); Blood Urea Nitrogen 12 mg/dL (8-23); Calcium 8.3 mg/dL (8.6-10.3); Carbon Dioxide 26 mEq/L (23-29); Chloride 100 mEq/L (98-107); Glucose 103 mg/dL (70-105); Osmolality,Calculated 278 (280-300); Phosphorous 3.6 mg/dL (2.7-4.5); Potassium 4.1 mEq/L (3.5-5.1); Sodium 134 mEq/L (136-145); eGFR For African Americans > 60 (> 60); eGFR For Non-African Americans > 60 (> 60)
[2020-01-15] MEDS: Levalbuterol Neb 1.25 MG/3 ML IH SCH ×4 (03:56→22:20)
[2020-01-15] MEDS: levoFLOXacin 500 MG TABLET PO SCH (08:40)
[2020-01-15] MEDS: Lactobacillus 1 EACH CAP.SPRINK PO SCH ×2 (08:40→21:35)
[2020-01-15] MEDS: *HR* Rivaroxaban 10 MG TABLET PO SCH (16:24)
[2020-01-16] MEDS: Levalbuterol Neb 1.25 MG/3 ML IH SCH ×4 (03:47→21:10)
[2020-01-16] MEDS ORDERED: Mag Hydrox/Al Hydrox/Simeth 30 ML UDC PO ONE (03:49)
[2020-01-16 08:40] LABS: Basophils % 0.1 %; Eosinophils # 0.1 K/mcL (0.0-0.6); Eosinophils % 0.5 %; Hematocrit 35.5 % (35.3-44.9); Immature Granulocytes % 0.7 % (0-4); Lymphocytes # 0.9 K/mcL (0.6-4.6); Lymphocytes % 7.4 %; Mean Corpuscular Hemoglobin 29.6 pg (28.0-33.3); Mean Corpuscular Volume 95.4 fL (83.0-100.0); Mean Platelet Volume 11.3 fL (9.4-12.4); Monocytes # 0.6 K/mcL (0.0-1.3); Monocytes % 5.3 %; Neutrophils # 10.4 K/mcL (1.6-8.9); Platelet Count 323 K/mcL (140-400); Red Blood Count 3.72 M/mcL (3.82-4.97); Red Cell Distribution Width 12.9 % (11.5-14.5); White Blood Count 12.1 K/mcL (4.3-11.1)
[2020-01-16] MEDS: levoFLOXacin 500 MG TABLET PO SCH (08:43)
[2020-01-16] MEDS: Lactobacillus 1 EACH CAP.SPRINK PO SCH ×2 (08:44→22:17)
[2020-01-16 08:50] LABS: BUN/Creatinine Ratio 23 (6-26); Blood Urea Nitrogen 12 mg/dL (8-23); Calcium 7.9 mg/dL (8.6-10.3); Carbon Dioxide 25 mEq/L (23-29); Chloride 100 mEq/L (98-107); Glucose 99 mg/dL (70-105); Osmolality,Calculated 276 (280-300); Sodium 133 mEq/L (136-145); eGFR For African Americans > 60 (> 60); eGFR For Non-African Americans > 60 (> 60)
[2020-01-16] MEDS: *HR* Rivaroxaban 10 MG TABLET PO SCH (16:57)
[2020-01-16] MEDS ORDERED: Mag Hydrox/Al Hydrox/Simeth 30 ML UDC PO PRN (17:06)
[2020-01-17 01:37] LABS: Basophils % 0.1 %; Eosinophils # 0.1 K/mcL (0.0-0.6); Eosinophils % 0.7 %; Hematocrit 34.2 % (35.3-44.9); Immature Granulocytes % 0.8 % (0-4); Lymphocytes % 9.5 %; Mean Corpuscular HGB Conc 32.2 g/dL (31.6-35.5); Mean Corpuscular Hemoglobin 30.6 pg (28.0-33.3); Mean Platelet Volume 10.9 fL (9.4-12.4); Monocytes # 0.6 K/mcL (0.0-1.3); Monocytes % 5.6 %; Platelet Count 351 K/mcL (140-400); Red Cell Distribution Width 12.8 % (11.5-14.5); Segmented Neutrophils % 83.3 %; White Blood Count 10.8 K/mcL (4.3-11.1)
[2020-01-17 01:39] LABS: VBG HCO3 29 mEq/L (21-27); VBG PCO2 40 mmHg (41-51); VBG PH 7.47 pH Units (7.32-7.42); VBG PO2 109 mmHg (25-50)
[2020-01-17 01:57] LABS: BUN/Creatinine Ratio 23 (6-26); Blood Urea Nitrogen 13 mg/dL (8-23); Calcium 8.1 mg/dL (8.6-10.3); Carbon Dioxide 28 mEq/L (23-29); Chloride 101 mEq/L (98-107); Glucose 109 mg/dL (70-105); Magnesium 2.1 mg/dL (1.6-2.6); Osmolality,Calculated 279 (280-300); Potassium 3.9 mEq/L (3.5-5.1); Sodium 134 mEq/L (136-145); eGFR For African Americans > 60 (> 60); eGFR For Non-African Americans > 60 (> 60)
[2020-01-17] MEDS: Levalbuterol Neb 1.25 MG/3 ML IH SCH ×4 (03:31→21:14)
[2020-01-17] MEDS: Lactobacillus 1 EACH CAP.SPRINK PO SCH ×2 (08:54→19:56)
[2020-01-17] MEDS: levoFLOXacin 500 MG TABLET PO SCH (08:54)
[2020-01-17] MEDS: *HR* Rivaroxaban 10 MG TABLET PO SCH (15:55)
[2020-01-18] MEDS: Levalbuterol Neb 1.25 MG/3 ML IH SCH ×4 (03:48→21:56)
[2020-01-18 05:05] LABS: Basophils % 0.2 %; Eosinophils # 0.1 K/mcL (0.0-0.6); Eosinophils % 0.4 %; Hematocrit 34.7 % (35.3-44.9); Hemoglobin 10.9 g/dL (11.5-15.4); Immature Granulocytes % 0.4 % (0-4); Lymphocytes # 1.1 K/mcL (0.6-4.6); Lymphocytes % 9.6 %; Mean Corpuscular HGB Conc 31.4 g/dL (31.6-35.5); Mean Corpuscular Hemoglobin 29.9 pg (28.0-33.3); Mean Corpuscular Volume 95.3 fL (83.0-100.0); Mean Platelet Volume 10.5 fL (9.4-12.4); Monocytes # 0.8 K/mcL (0.0-1.3); Monocytes % 6.6 %; Neutrophils # 9.4 K/mcL (1.6-8.9); Platelet Count 389 K/mcL (140-400); Red Blood Count 3.64 M/mcL (3.82-4.97); Red Cell Distribution Width 12.7 % (11.5-14.5); Segmented Neutrophils % 82.8 %; White Blood Count 11.3 K/mcL (4.3-11.1)
[2020-01-18 05:25] LABS: BUN/Creatinine Ratio 27 (6-26); Blood Urea Nitrogen 15 mg/dL (8-23); Calcium 8.3 mg/dL (8.6-10.3); Carbon Dioxide 26 mEq/L (23-29); Chloride 101 mEq/L (98-107); Glucose 112 mg/dL (70-105); Magnesium 2.1 mg/dL (1.6-2.6); Osmolality,Calculated 278 (280-300); Potassium 4.1 mEq/L (3.5-5.1); Sodium 133 mEq/L (136-145); eGFR For African Americans > 60 (> 60); eGFR For Non-African Americans > 60 (> 60)
[2020-01-18] MEDS: Lactobacillus 1 EACH CAP.SPRINK PO SCH ×3 (08:11→20:51)
[2020-01-18] MEDS ORDERED: Furosemide 40 MG TABLET PO ONE (14:03)
[2020-01-18] MEDS: Sennosides/Docusate Sodium TABLET PO SCH ×2 (14:44→20:51)
[2020-01-18] MEDS: *HR* Rivaroxaban 10 MG TABLET PO SCH (16:20)
[2020-01-19] MEDS: Acetaminophen 325 MG TABLET PO PRN (02:24)
[2020-01-19 03:09] LABS: BUN/Creatinine Ratio 51 (6-26); Blood Urea Nitrogen 27 mg/dL (8-23); Calcium 7.9 mg/dL (8.6-10.3); Carbon Dioxide 24 mEq/L (23-29); Chloride 102 mEq/L (98-107); Glucose 109 mg/dL (70-105); Osmolality,Calculated 280 (280-300); Sodium 132 mEq/L (136-145); eGFR For African Americans > 60 (> 60); eGFR For Non-African Americans > 60 (> 60)
[2020-01-19] MEDS: Levalbuterol Neb 1.25 MG/3 ML IH SCH ×4 (04:25→21:29)
[2020-01-19] MEDS ORDERED: Furosemide 40 MG/4 ML VIAL IVP ONE (07:38)
[2020-01-19] MEDS: Lactobacillus 1 EACH CAP.SPRINK PO SCH ×2 (08:41→20:34)
[2020-01-19] MEDS: Sennosides/Docusate Sodium TABLET PO SCH ×2 (08:41→20:34)
[2020-01-19] MEDS: *HR* Rivaroxaban 10 MG TABLET PO SCH (17:43)
[2020-01-20 02:04] LABS: Basophils % 0.1 %; Eosinophils % 0.2 %; Hematocrit 25.4 % (35.3-44.9); Immature Granulocytes % 0.5 % (0-4); Lymphocytes # 1.2 K/mcL (0.6-4.6); Lymphocytes % 8.6 %; Mean Corpuscular HGB Conc 31.9 g/dL (31.6-35.5); Mean Corpuscular Hemoglobin 30.5 pg (28.0-33.3); Mean Corpuscular Volume 95.5 fL (83.0-100.0); Mean Platelet Volume 10.4 fL (9.4-12.4); Monocytes # 0.9 K/mcL (0.0-1.3); Monocytes % 6.1 %; Neutrophils # 11.7 K/mcL (1.6-8.9); Platelet Count 392 K/mcL (140-400); Red Blood Count 2.66 M/mcL (3.82-4.97); Red Cell Distribution Width 12.8 % (11.5-14.5); Segmented Neutrophils % 84.5 %; White Blood Count 13.9 K/mcL (4.3-11.1)
[2020-01-20 02:05] LABS: Hemoglobin 8.1 g/dL (11.5-15.4)
[2020-01-20 02:21] LABS: BUN/Creatinine Ratio 77 (6-26); Blood Urea Nitrogen 46 mg/dL (8-23); Carbon Dioxide 25 mEq/L (23-29); Chloride 102 mEq/L (98-107); Glucose 133 mg/dL (70-105); Osmolality,Calculated 292 (280-300); Potassium 3.3 mEq/L (3.5-5.1); Sodium 134 mEq/L (136-145); eGFR For African Americans > 60 (> 60); eGFR For Non-African Americans > 60 (> 60)
[2020-01-20] MEDS: Levalbuterol Neb 1.25 MG/3 ML IH SCH ×4 (04:08→21:19)
[2020-01-20] MEDS ORDERED: Potassium Chloride Elixir 20 MEQ/15 ML UDC PO ONE (08:36)
[2020-01-20] MEDS ORDERED: Furosemide 20 MG/2 ML VIAL IVP ONE ×2 (08:39→21:53)
[2020-01-20 09:09] LABS: Hematocrit 23.2 % (35.3-44.9); Hemoglobin 7.5 g/dL (11.5-15.4)
[2020-01-20] MEDS: Lactobacillus 1 EACH CAP.SPRINK PO SCH ×2 (09:54→21:52)
[2020-01-20] MEDS: Acetaminophen 325 MG TABLET PO PRN (09:54)
[2020-01-20] MEDS: Ondansetron 4 MG/2 ML VIAL IVP PRN ×2 (09:54→16:56)
[2020-01-20] MEDS: Sennosides/Docusate Sodium TABLET PO SCH (09:55)
[2020-01-20 15:04] LABS: Hematocrit 22.5 % (35.3-44.9)
[2020-01-20] MEDS ORDERED: 0.9 % Sodium Chloride 250 ML IVC ONE (15:39)
[2020-01-20] MEDS ORDERED: *HR* Phytonadione 10 MG/ML AMPUL SQ ONE (15:44)
[2020-01-20] MEDS ORDERED: 0.9 % Sodium Chloride 250 ML IVC SCH ×2 (15:45→17:00)
[2020-01-20] MEDS: Pantoprazole 40 MG VIAL IVP SCH (16:56)
[2020-01-20] MEDS ORDERED: 0.9 % Sodium Chloride 250 ML ONE (22:17)
[2020-01-21 03:46] LABS: Basophils % 0.2 %; Eosinophils % 0.2 %; Hematocrit 29.4 % (35.3-44.9); Immature Granulocytes % 0.8 % (0-4); Lymphocytes % 7.7 %; Mean Corpuscular Hemoglobin 30.4 pg (28.0-33.3); Mean Corpuscular Volume 95.1 fL (83.0-100.0); Mean Platelet Volume 10.1 fL (9.4-12.4); Monocytes # 0.8 K/mcL (0.0-1.3); Monocytes % 6.2 %; Neutrophils # 10.9 K/mcL (1.6-8.9); Platelet Count 327 K/mcL (140-400); Red Blood Count 3.09 M/mcL (3.82-4.97); Red Cell Distribution Width 13.6 % (11.5-14.5); Segmented Neutrophils % 84.9 %; White Blood Count 12.9 K/mcL (4.3-11.1)
[2020-01-21 03:47] LABS: Hemoglobin 9.4 g/dL (11.5-15.4)
[2020-01-21 04:07] LABS: BUN/Creatinine Ratio 84 (6-26); Blood Urea Nitrogen 53 mg/dL (8-23); Calcium 7.9 mg/dL (8.6-10.3); Carbon Dioxide 25 mEq/L (23-29); Chloride 106 mEq/L (98-107); Glucose 138 mg/dL (70-105); Osmolality,Calculated 303 (280-300); Potassium 4.1 mEq/L (3.5-5.1); Sodium 138 mEq/L (136-145); eGFR For African Americans > 60 (> 60); eGFR For Non-African Americans > 60 (> 60)
[2020-01-21] MEDS: Levalbuterol Neb 1.25 MG/3 ML IH SCH ×4 (05:05→21:07)
[2020-01-21] MEDS: Pantoprazole 40 MG VIAL IVP SCH ×2 (05:35→17:47)
[2020-01-21] MEDS: Acetaminophen 325 MG TABLET PO PRN (09:44)
[2020-01-21] MEDS: Lactobacillus 1 EACH CAP.SPRINK PO SCH ×2 (09:44→21:49)
[2020-01-21 13:01] LABS: Hematocrit 28.9 % (35.3-44.9); Hemoglobin 9.3 g/dL (11.5-15.4)
[2020-01-21] MEDS: Ondansetron 4 MG/2 ML VIAL IVP PRN (16:03)
[2020-01-21] MEDS ORDERED: Melatonin 3 MG TABLET PO ONE (20:18)
[2020-01-22] MEDS: Ondansetron 4 MG/2 ML VIAL IVP PRN (00:22)
[2020-01-22] MEDS: Levalbuterol Neb 1.25 MG/3 ML IH SCH ×4 (03:37→21:24)
[2020-01-22] MEDS: Pantoprazole 40 MG VIAL IVP SCH ×2 (05:14→17:28)
[2020-01-22] MEDS: Lactobacillus 1 EACH CAP.SPRINK PO SCH ×2 (07:31→22:35)
[2020-01-22 07:51] LABS: Basophils % 0.2 %; Eosinophils % 0.2 %; Hematocrit 27.7 % (35.3-44.9); Hemoglobin 8.6 g/dL (11.5-15.4); Immature Granulocytes % 0.6 % (0-4); Lymphocytes # 0.9 K/mcL (0.6-4.6); Lymphocytes % 6.6 %; Mean Corpuscular Hemoglobin 30.6 pg (28.0-33.3); Mean Corpuscular Volume 98.6 fL (83.0-100.0); Mean Platelet Volume 10.5 fL (9.4-12.4); Monocytes # 0.7 K/mcL (0.0-1.3); Monocytes % 5.5 %; Neutrophils # 11.4 K/mcL (1.6-8.9); Platelet Count 395 K/mcL (140-400); Red Blood Count 2.81 M/mcL (3.82-4.97); Red Cell Distribution Width 13.7 % (11.5-14.5); Segmented Neutrophils % 86.9 %; White Blood Count 13.1 K/mcL (4.3-11.1)
[2020-01-22 08:08] LABS: BUN/Creatinine Ratio 76 (6-26); Blood Urea Nitrogen 39 mg/dL (8-23); Calcium 8.2 mg/dL (8.6-10.3); Carbon Dioxide 29 mEq/L (23-29); Chloride 108 mEq/L (98-107); Glucose 118 mg/dL (70-105); Osmolality,Calculated 304 (280-300); Potassium 3.9 mEq/L (3.5-5.1); Sodium 142 mEq/L (136-145); eGFR For African Americans > 60 (> 60); eGFR For Non-African Americans > 60 (> 60)
[2020-01-22 14:26] LABS: Hematocrit 26.1 % (35.3-44.9); Hemoglobin 8.4 g/dL (11.5-15.4)
[2020-01-22] MEDS: Morphine Sulfate Oral CONC 10 MG/0.5 ML ORAL.SYG SL PRN (18:36)
[2020-01-22 21:33] LABS: Hemoglobin 8.7 g/dL (11.5-15.4)
[2020-01-23] MEDS: Levalbuterol Neb 1.25 MG/3 ML IH SCH ×4 (03:43→22:36)
[2020-01-23 04:58] LABS: Basophils % 0.2 %; Eosinophils % 0.4 %; Hemoglobin 7.6 g/dL (11.5-15.4); Mean Platelet Volume 10.8 fL (9.4-12.4)
[2020-01-23 05:00] LABS: Eosinophils # 0.1 K/mcL (0.0-0.6); Hematocrit 23.9 % (35.3-44.9); Immature Granulocytes % 1.2 % (0-4); Lymphocytes # 1.1 K/mcL (0.6-4.6); Lymphocytes % 8.8 %; Mean Corpuscular HGB Conc 31.8 g/dL (31.6-35.5); Mean Corpuscular Hemoglobin 30.4 pg (28.0-33.3); Mean Corpuscular Volume 95.6 fL (83.0-100.0); Monocytes # 0.8 K/mcL (0.0-1.3); Neutrophils # 10.8 K/mcL (1.6-8.9); Platelet Count 194 K/mcL (140-400); Segmented Neutrophils % 83.4 %; White Blood Count 12.9 K/mcL (4.3-11.1)
[2020-01-23 05:15] LABS: BUN/Creatinine Ratio 68 (6-26); Blood Urea Nitrogen 25 mg/dL (8-23); Calcium 7.8 mg/dL (8.6-10.3); Carbon Dioxide 25 mEq/L (23-29); Chloride 110 mEq/L (98-107); Glucose 118 mg/dL (70-105); Osmolality,Calculated 293 (280-300); Potassium 4.8 mEq/L (3.5-5.1); Sodium 139 mEq/L (136-145); eGFR For African Americans > 60 (> 60); eGFR For Non-African Americans > 60 (> 60)
[2020-01-23] MEDS: Acetaminophen 325 MG TABLET PO PRN ×2 (05:15→17:45)
[2020-01-23] MEDS: Pantoprazole 40 MG VIAL IVP SCH ×2 (05:17→17:29)
[2020-01-23] MEDS: Lactobacillus 1 EACH CAP.SPRINK PO SCH ×2 (07:15→20:18)
[2020-01-23] MEDS ORDERED: 0.9 % Sodium Chloride 250 ML IVC SCH (10:30)
[2020-01-23 12:34] LABS: Hematocrit 25.5 % (35.3-44.9)
[2020-01-23 15:32] LABS: Hemoglobin 9.1 g/dL (11.5-15.4)
[2020-01-24 02:36] LABS: Basophils % 0.2 %; Eosinophils # 0.1 K/mcL (0.0-0.6); Eosinophils % 0.4 %; Hemoglobin 8.9 g/dL (11.5-15.4); Immature Granulocytes % 0.6 % (0-4); Lymphocytes # 1.3 K/mcL (0.6-4.6); Lymphocytes % 9.3 %; Mean Corpuscular Hemoglobin 31.8 pg (28.0-33.3); Mean Corpuscular Volume 96.4 fL (83.0-100.0); Mean Platelet Volume 10.9 fL (9.4-12.4); Monocytes # 0.9 K/mcL (0.0-1.3); Monocytes % 6.2 %; Neutrophils # 11.8 K/mcL (1.6-8.9); Platelet Count 221 K/mcL (140-400); Red Cell Distribution Width 14.6 % (11.5-14.5); Segmented Neutrophils % 83.3 %; White Blood Count 14.2 K/mcL (4.3-11.1)
[2020-01-24 02:59] LABS: BUN/Creatinine Ratio 47 (6-26); Blood Urea Nitrogen 18 mg/dL (8-23); Calcium 8.1 mg/dL (8.6-10.3); Carbon Dioxide 27 mEq/L (23-29); Chloride 100 mEq/L (98-107); Glucose 109 mg/dL (70-105); Osmolality,Calculated 280 (280-300); Potassium 3.6 mEq/L (3.5-5.1); Sodium 134 mEq/L (136-145); eGFR For African Americans > 60 (> 60); eGFR For Non-African Americans > 60 (> 60)
[2020-01-24] MEDS: Levalbuterol Neb 1.25 MG/3 ML IH SCH ×3 (03:49→15:36)
[2020-01-24] MEDS: Pantoprazole 40 MG VIAL IVP SCH (05:22)
[2020-01-24] MEDS ORDERED: Sennosides/Docusate Sodium TABLET PO PRN (08:27)
[2020-01-24] MEDS ORDERED: polyethylene glycoL 3350 17 GM POWD.PACK PO SCH (09:00)
[2020-01-24] MEDS: Lactobacillus 1 EACH CAP.SPRINK PO SCH (09:16)
[2020-01-24 11:56] VITALS: BP 118/63
[2020-01-24] MEDS: Morphine Sulfate Oral CONC 10 MG/0.5 ML ORAL.SYG SL PRN (11:56)
== END 2020-01-24 16:26 ==
LOC: 3ANU → SUATTDRO 01-04 16:24
PROVIDERS: ADMIT Internal Medicine; ATTEND Pharmacist

== ENCOUNTER 2020-07-15 12:25 | Observation (INO) ==
[2020-07-15] MEDS ORDERED: Pantoprazole 40 MG VIAL IVP ONE (12:44)
[2020-07-15 13:47] LABS: Albumin 4.1 g/dL (3.5-5.7); Albumin/Globulin Ratio 1.4 (1.1-2.2); Bilirubin,Direct 0.1 mg/dL (0.0-0.2); Bilirubin,Indirect 0.5 mg/dL (0.0-1.0); Bilirubin,Total 0.6 mg/dL (0.3-1.0); Globulin 2.9 g/dL (2.4-3.5)
[2020-07-15 13:49] LABS: Basophils % 0.4 %; Eosinophils % 0.2 %; Hematocrit 41.5 % (35.3-44.9); Hemoglobin 12.6 g/dL (11.5-15.4); Immature Granulocytes % 0.3 % (0-4); Lymphocytes # 1.3 K/mcL (0.6-4.6); Lymphocytes % 11.8 %; Mean Corpuscular HGB Conc 30.4 g/dL (31.6-35.5); Mean Corpuscular Hemoglobin 29.2 pg (28.0-33.3); Mean Corpuscular Volume 96.3 fL (83.0-100.0); Mean Platelet Volume 11.1 fL (9.4-12.4); Monocytes # 0.7 K/mcL (0.0-1.3); Monocytes % 6.8 %; Neutrophils # 8.7 K/mcL (1.6-8.9); Platelet Count 247 K/mcL (140-400); Red Blood Count 4.31 M/mcL (3.82-4.97); Red Cell Distribution Width 13.1 % (11.5-14.5); Segmented Neutrophils % 80.5 %; White Blood Count 10.8 K/mcL (4.3-11.1)
[2020-07-15 13:57] LABS: INR 1.1; Prothrombin Time 12.7 Seconds (9.4-12.1)
[2020-07-15 14:03] LABS: BUN/Creatinine Ratio 34 (6-26); Blood Urea Nitrogen 17 mg/dL (8-23); Calcium 9.3 mg/dL (8.6-10.3); Carbon Dioxide 27 mEq/L (23-29); Chloride 105 mEq/L (98-107); Glucose 92 mg/dL (70-105); Osmolality,Calculated 289 (280-300); Potassium 4.1 mEq/L (3.5-5.1); Sodium 139 mEq/L (136-145); eGFR For African Americans > 60 (> 60); eGFR For Non-African Americans > 60 (> 60)
[2020-07-15] MEDS ORDERED: Naloxone 0.4 MG/ML INJ IVP PRN (15:38)
[2020-07-15] MEDS ORDERED: Ondansetron 4 MG/2 ML VIAL IVP PRN (15:38)
[2020-07-15] MEDS ORDERED: Isovue-370 500 ML BOTTLE IVP ONE (16:49)
[2020-07-15] MEDS: Gabapentin 100 MG CAPSULE PO SCH (20:19)
[2020-07-15] MEDS: Pantoprazole 40 MG VIAL IVP SCH (20:28)
[2020-07-16 06:17] LABS: Basophils % 0.4 %; Eosinophils # 0.1 K/mcL (0.0-0.6); Eosinophils % 0.6 %; Hematocrit 38.1 % (35.3-44.9); Hemoglobin 11.6 g/dL (11.5-15.4); Immature Granulocytes % 0.3 % (0-4); Lymphocytes # 1.2 K/mcL (0.6-4.6); Lymphocytes % 11.7 %; Mean Corpuscular HGB Conc 30.4 g/dL (31.6-35.5); Mean Corpuscular Hemoglobin 28.9 pg (28.0-33.3); Mean Platelet Volume 10.6 fL (9.4-12.4); Monocytes # 0.8 K/mcL (0.0-1.3); Neutrophils # 8.1 K/mcL (1.6-8.9); Platelet Count 231 K/mcL (140-400); Red Blood Count 4.01 M/mcL (3.82-4.97); White Blood Count 10.3 K/mcL (4.3-11.1)
[2020-07-16 06:24] LABS: BUN/Creatinine Ratio 31 (6-26); Blood Urea Nitrogen 16 mg/dL (8-23); Carbon Dioxide 24 mEq/L (23-29); Chloride 106 mEq/L (98-107); Glucose 82 mg/dL (70-105); Osmolality,Calculated 286 (280-300); Phosphorous 3.9 mg/dL (2.7-4.5); Potassium 3.9 mEq/L (3.5-5.1); Sodium 138 mEq/L (136-145); eGFR For African Americans > 60 (> 60); eGFR For Non-African Americans > 60 (> 60)
[2020-07-16] MEDS: Pantoprazole 40 MG VIAL IVP SCH ×2 (06:33→17:30)
[2020-07-16] MEDS: Gabapentin 100 MG CAPSULE PO SCH ×3 (10:23→21:57)
[2020-07-16 12:48] LABS: Adenovirus Not Detected (Not Detect); Coronavirus 229E Not Detected (Not Detect); Coronavirus HKU1 Not Detected (Not Detect); Coronavirus NL63 Not Detected (Not Detect); Coronavirus OC43 Not Detected (Not Detect); Human Metapneumovirus Not Detected (Not Detect); Human Rhinovirus/Enterovirus Not Detected (Not Detect); SARS-CoV-2 Not Detected (Not Detect)
[2020-07-16 12:49] LABS: Bordetella Pertussis Not Detected (Not Detect); Chlamydophila pneumoniae Not Detected (Not Detect); Influenza A Subtype 2009 H1 Not Detected (Not Detect); Influenza B Not Detected (Not Detect); Mycoplasma pneumoniae Not Detected (Not Detect); Parainfluenza Virus 1 Not Detected (Not Detect); Parainfluenza Virus 2 Not Detected (Not Detect); Parainfluenza Virus 3 Not Detected (Not Detect); Parainfluenza Virus 4 Not Detected (Not Detect); Respiratory Syncytial Virus Not Detected (Not Detect)
[2020-07-16] MEDS ORDERED: cefTRIAXone 1,000 MG in Water for inj. (sterile) 10 ML IVP SCH (13:00)
[2020-07-16] MEDS ORDERED: Azithromycin 500 MG in 0.9 % Sodium Chloride 250 ML IVPB SCH (13:00)
[2020-07-16] MEDS ORDERED: Lidocaine -MPF 2% 2 ML VIAL ONE (13:40)
[2020-07-16] MEDS ORDERED: *HR* Propofol 200 MG/20 ML VIAL IVP ONE (13:40)
[2020-07-16] MEDS: 0.9 % Sodium Chloride 500 ML IVC SCH ×2 (13:53→23:02)
[2020-07-17] MEDS: Pantoprazole 40 MG VIAL IVP SCH (05:34)
[2020-07-17 07:20] LABS: Basophils # 0.1 K/mcL (0.0-0.2); Basophils % 0.7 %; Eosinophils # 0.1 K/mcL (0.0-0.6); Eosinophils % 1.5 %; Hematocrit 37.2 % (35.3-44.9); Hemoglobin 11.3 g/dL (11.5-15.4); Immature Granulocytes % 0.2 % (0-4); Lymphocytes # 1.1 K/mcL (0.6-4.6); Mean Corpuscular HGB Conc 30.4 g/dL (31.6-35.5); Mean Corpuscular Hemoglobin 29.5 pg (28.0-33.3); Mean Corpuscular Volume 97.1 fL (83.0-100.0); Mean Platelet Volume 10.8 fL (9.4-12.4); Monocytes # 0.8 K/mcL (0.0-1.3); Monocytes % 9.1 %; Neutrophils # 6.4 K/mcL (1.6-8.9); Platelet Count 227 K/mcL (140-400); Red Blood Count 3.83 M/mcL (3.82-4.97); Red Cell Distribution Width 12.9 % (11.5-14.5); Segmented Neutrophils % 75.5 %; White Blood Count 8.5 K/mcL (4.3-11.1)
[2020-07-17 07:44] LABS: BUN/Creatinine Ratio 34 (6-26); Blood Urea Nitrogen 19 mg/dL (8-23); Calcium 8.9 mg/dL (8.6-10.3); Carbon Dioxide 26 mEq/L (23-29); Chloride 105 mEq/L (98-107); Glucose 100 mg/dL (70-105); Magnesium 1.9 mg/dL (1.6-2.6); Osmolality,Calculated 288 (280-300); Phosphorous 3.5 mg/dL (2.7-4.5); Sodium 138 mEq/L (136-145); eGFR For African Americans > 60 (> 60); eGFR For Non-African Americans > 60 (> 60)
[2020-07-17] MEDS ORDERED: Sucralfate 1 GM TABLET PO SCH (09:00)
[2020-07-17] MEDS: Gabapentin 100 MG CAPSULE PO SCH (09:20)
[2020-07-17 11:19] VITALS: BP 103/59
[2020-07-17] MEDS: 0.9 % Sodium Chloride 500 ML IVC SCH (13:16)
== END 2020-07-17 14:14 | disposition home or self-care (01) ==
LOC: 3ANU 12:25 → EMEROOARM 12:25 → SUATTDRO 16:29 → 3ANU 18:30
PROVIDERS: ADMIT Internal Medicine; ATTEND Internal Medicine

== ENCOUNTER 2020-08-05 11:19 | Inpatient (IN) ==
[2020-08-05 12:17] LABS: Basophils # 0.1 K/mcL (0.0-0.2); Basophils % 0.3 %; Eosinophils # 0.1 K/mcL (0.0-0.6); Eosinophils % 0.4 %; Hematocrit 35.4 % (35.3-44.9); Hemoglobin 11.2 g/dL (11.5-15.4); Immature Granulocytes % 0.4 % (0-4); Lymphocytes # 1.1 K/mcL (0.6-4.6); Mean Corpuscular HGB Conc 31.6 g/dL (31.6-35.5); Mean Corpuscular Hemoglobin 29.6 pg (28.0-33.3); Mean Corpuscular Volume 93.4 fL (83.0-100.0); Mean Platelet Volume 10.5 fL (9.4-12.4); Monocytes # 1.1 K/mcL (0.0-1.3); Monocytes % 6.1 %; Neutrophils # 16.1 K/mcL (1.6-8.9); Platelet Count 292 K/mcL (140-400); Red Blood Count 3.79 M/mcL (3.82-4.97); Red Cell Distribution Width 13.2 % (11.5-14.5); Segmented Neutrophils % 86.8 %; White Blood Count 18.5 K/mcL (4.3-11.1)
[2020-08-05 13:10] LABS: Alanine Aminotransferase 3 Units/L (7-52); Albumin 3.4 g/dL (3.5-5.7); Albumin/Globulin Ratio 1.2 (1.1-2.2); Alkaline Phosphatase 73 Units/L (34-104); Amylase 16 Units/L (29-103); Aspartate Amino Transferase 7 Units/L (13-39); BUN/Creatinine Ratio 33 (6-26); Bilirubin,Direct 0.1 mg/dL (0.0-0.2); Bilirubin,Indirect 0.4 mg/dL (0.0-1.0); Bilirubin,Total 0.5 mg/dL (0.3-1.0); Blood Urea Nitrogen 15 mg/dL (8-23); Calcium 8.5 mg/dL (8.6-10.3); Carbon Dioxide 25 mEq/L (23-29); Chloride 104 mEq/L (98-107); Globulin 2.8 g/dL (2.4-3.5); Glucose 100 mg/dL (70-105); Lipase < 3 Units/L (11-82); Osmolality,Calculated 285 (280-300); Potassium 3.5 mEq/L (3.5-5.1); Sodium 137 mEq/L (136-145); Total Protein 6.2 g/dL (6.4-8.9); eGFR For African Americans > 60 (> 60); eGFR For Non-African Americans > 60 (> 60)
[2020-08-05] MEDS ORDERED: Isovue-370 500 ML BOTTLE IVP ONE (14:07)
[2020-08-05] MEDS ORDERED: 0.9 % Sodium Chloride 1,000 ML IVC ONE (14:08)
[2020-08-05] MEDS ORDERED: Ondansetron 4 MG/2 ML VIAL IVP ONE (14:27)
[2020-08-05] MEDS ORDERED: *HR* FentaNYL (PF) 100 MCG/2 ML VIAL IVP ONE (14:46)
[2020-08-05] MEDS ORDERED: MetroNIDAZOLE 500 MG/100 ML 500 MG/100 ML BAG IVPB ONE (15:54)
[2020-08-05] MEDS ORDERED: Naloxone 0.4 MG/ML INJ IVP PRN (16:43)
[2020-08-05] MEDS ORDERED: Ringers Solution, Lactated 1,000 ML IVC SCH (16:45)
[2020-08-05] MEDS ORDERED: Piperacillin/Tazobactam 3.375 GM in 0.9 % Sodium Chloride Mini Bag 100 ML IVPB SCH (17:00)
[2020-08-05 18:28] LABS: Troponin I < 0.03 ng/mL (< 0.04)
[2020-08-05] MEDS: *HR* HYDROcodone/Acet 5/325 mg TABLET PO PRN (19:50)
[2020-08-05] MEDS: Piperacillin/Tazobactam 3.375 GM in 0.9 % Sodium Chloride Mini Bag 100 ML IVPB SCH (22:10)
[2020-08-05] MEDS: Sucralfate 1 GM TABLET PO SCH (22:10)
[2020-08-05] MEDS: *HR* Heparin 5,000 UNIT/ML VIAL SQ SCH (22:11)
[2020-08-05] MEDS: Gabapentin 100 MG CAPSULE PO SCH (22:13)
[2020-08-06] MEDS: Ondansetron 4 MG/2 ML VIAL IVP PRN ×2 (00:26→08:44)
[2020-08-06] MEDS: *HR* HYDROcodone/Acet 5/325 mg TABLET PO PRN ×2 (02:39→10:39)
[2020-08-06] MEDS: Piperacillin/Tazobactam 3.375 GM in 0.9 % Sodium Chloride Mini Bag 100 ML IVPB SCH ×3 (04:16→20:26)
[2020-08-06] MEDS: *HR* Heparin 5,000 UNIT/ML VIAL SQ SCH ×3 (04:41→20:27)
[2020-08-06 06:05] LABS: Basophils % 0.2 %; Eosinophils # 0.1 K/mcL (0.0-0.6); Eosinophils % 1.1 %; Immature Granulocytes % 0.3 % (0-4); Lymphocytes # 1.1 K/mcL (0.6-4.6); Lymphocytes % 8.3 %; Mean Corpuscular HGB Conc 31.7 g/dL (31.6-35.5); Mean Corpuscular Hemoglobin 29.8 pg (28.0-33.3); Mean Corpuscular Volume 93.9 fL (83.0-100.0); Mean Platelet Volume 10.6 fL (9.4-12.4); Monocytes # 0.8 K/mcL (0.0-1.3); Monocytes % 5.9 %; Neutrophils # 11.2 K/mcL (1.6-8.9); Platelet Count 258 K/mcL (140-400); Red Blood Count 3.09 M/mcL (3.82-4.97); Red Cell Distribution Width 13.2 % (11.5-14.5); Segmented Neutrophils % 84.2 %; White Blood Count 13.3 K/mcL (4.3-11.1)
[2020-08-06 06:08] LABS: INR 1.2; Prothrombin Time 13.4 Seconds (9.4-12.1)
[2020-08-06 06:09] LABS: Activated Partial Thrombo Time 28.4 Seconds (26.0-36.0); Hemoglobin 9.2 g/dL (11.5-15.4)
[2020-08-06 06:21] LABS: BUN/Creatinine Ratio 26 (6-26); Blood Urea Nitrogen 11 mg/dL (8-23); Carbon Dioxide 24 mEq/L (23-29); Chloride 107 mEq/L (98-107); Glucose 91 mg/dL (70-105); Magnesium 1.8 mg/dL (1.6-2.6); Osmolality,Calculated 281 (280-300); Phosphorous 2.9 mg/dL (2.7-4.5); Potassium 3.4 mEq/L (3.5-5.1); Sodium 136 mEq/L (136-145); eGFR For African Americans > 60 (> 60); eGFR For Non-African Americans > 60 (> 60)
[2020-08-06] MEDS ORDERED: 0.9 % Sodium Chloride 1,000 ML IVC SCH (07:45)
[2020-08-06] MEDS: Sucralfate 1 GM TABLET PO SCH ×4 (08:44→20:27)
[2020-08-06] MEDS: Gabapentin 100 MG CAPSULE PO SCH ×3 (08:45→20:27)
[2020-08-06] MEDS ORDERED: Pantoprazole 40 MG VIAL IVP SCH (09:00)
[2020-08-06] MEDS ORDERED: D5% in Water 1,000 ML IVC PRN (10:58)
[2020-08-06] MEDS ORDERED: Dextrose Gel 15 GM/37.5 ML TUBE PO PRN ×2 (10:58)
[2020-08-06] MEDS ORDERED: *HR* Dextrose 50 % in Water (Vial) 50 ML VIAL IVP PRN (10:58)
[2020-08-06] MEDS: Ondansetron 4 MG/2 ML VIAL IVP SCH ×2 (16:17→23:10)
[2020-08-06] MEDS: Pantoprazole 40 MG VIAL IVP SCH (18:06)
[2020-08-07] MEDS: Piperacillin/Tazobactam 3.375 GM in 0.9 % Sodium Chloride Mini Bag 100 ML IVPB SCH ×3 (04:57→20:12)
[2020-08-07] MEDS: Pantoprazole 40 MG VIAL IVP SCH ×2 (04:58→16:59)
[2020-08-07] MEDS: *HR* Heparin 5,000 UNIT/ML VIAL SQ SCH ×3 (04:59→20:13)
[2020-08-07] MEDS: Acetaminophen 325 MG TABLET PO PRN (05:27)
[2020-08-07 06:36] LABS: Basophils # 0.1 K/mcL (0.0-0.2); Basophils % 0.4 %; Eosinophils # 0.1 K/mcL (0.0-0.6); Hematocrit 35.2 % (35.3-44.9); Hemoglobin 10.5 g/dL (11.5-15.4); Immature Granulocytes % 0.3 % (0-4); Lymphocytes % 7.1 %; Mean Corpuscular HGB Conc 29.8 g/dL (31.6-35.5); Mean Corpuscular Hemoglobin 28.2 pg (28.0-33.3); Mean Corpuscular Volume 94.6 fL (83.0-100.0); Mean Platelet Volume 10.9 fL (9.4-12.4); Monocytes # 1.1 K/mcL (0.0-1.3); Monocytes % 8.1 %; Neutrophils # 11.3 K/mcL (1.6-8.9); Platelet Count 301 K/mcL (140-400); Red Blood Count 3.72 M/mcL (3.82-4.97); Red Cell Distribution Width 13.2 % (11.5-14.5); Segmented Neutrophils % 83.1 %; White Blood Count 13.6 K/mcL (4.3-11.1)
[2020-08-07 06:58] LABS: BUN/Creatinine Ratio 19 (6-26); Blood Urea Nitrogen 9 mg/dL (8-23); Calcium 8.1 mg/dL (8.6-10.3); Carbon Dioxide 22 mEq/L (23-29); Chloride 107 mEq/L (98-107); Glucose 80 mg/dL (70-105); Magnesium 1.8 mg/dL (1.6-2.6); Osmolality,Calculated 284 (280-300); Potassium 3.4 mEq/L (3.5-5.1); Sodium 138 mEq/L (136-145); eGFR For African Americans > 60 (> 60); eGFR For Non-African Americans > 60 (> 60)
[2020-08-07] MEDS: Sucralfate 1 GM TABLET PO SCH ×4 (08:07→20:11)
[2020-08-07] MEDS: Ondansetron 4 MG/2 ML VIAL IVP SCH ×2 (08:07→16:59)
[2020-08-07] MEDS: Gabapentin 100 MG CAPSULE PO SCH ×3 (08:07→20:12)
[2020-08-07] MEDS: *HR* HYDROcodone/Acet 5/325 mg TABLET PO PRN (20:12)
[2020-08-08] MEDS: Ondansetron 4 MG/2 ML VIAL IVP SCH ×3 (00:30→15:48)
[2020-08-08] MEDS: *HR* HYDROcodone/Acet 5/325 mg TABLET PO PRN (03:00)
[2020-08-08] MEDS: Piperacillin/Tazobactam 3.375 GM in 0.9 % Sodium Chloride Mini Bag 100 ML IVPB SCH ×3 (03:01→21:23)
[2020-08-08 05:47] LABS: Basophils % 0.2 %; Eosinophils # 0.1 K/mcL (0.0-0.6); Eosinophils % 0.4 %; Hematocrit 31.9 % (35.3-44.9); Hemoglobin 9.9 g/dL (11.5-15.4); Immature Granulocytes % 0.5 % (0-4); Lymphocytes # 0.8 K/mcL (0.6-4.6); Lymphocytes % 4.7 %; Mean Corpuscular Hemoglobin 28.6 pg (28.0-33.3); Mean Corpuscular Volume 92.2 fL (83.0-100.0); Mean Platelet Volume 10.7 fL (9.4-12.4); Monocytes # 1.4 K/mcL (0.0-1.3); Monocytes % 8.5 %; Neutrophils # 14.4 K/mcL (1.6-8.9); Platelet Count 280 K/mcL (140-400); Red Blood Count 3.46 M/mcL (3.82-4.97); Red Cell Distribution Width 13.2 % (11.5-14.5); Segmented Neutrophils % 85.7 %; White Blood Count 16.8 K/mcL (4.3-11.1)
[2020-08-08 06:06] LABS: BUN/Creatinine Ratio 13 (6-26); Blood Urea Nitrogen 6 mg/dL (8-23); Calcium 7.4 mg/dL (8.6-10.3); Carbon Dioxide 20 mEq/L (23-29); Chloride 105 mEq/L (98-107); Glucose 81 mg/dL (70-105); Osmolality,Calculated 277 (280-300); Potassium 3.2 mEq/L (3.5-5.1); Sodium 135 mEq/L (136-145); eGFR For African Americans > 60 (> 60); eGFR For Non-African Americans > 60 (> 60)
[2020-08-08] MEDS: Pantoprazole 40 MG VIAL IVP SCH ×2 (06:22→17:36)
[2020-08-08] MEDS: *HR* Heparin 5,000 UNIT/ML VIAL SQ SCH ×3 (06:23→21:22)
[2020-08-08] MEDS: Gabapentin 100 MG CAPSULE PO SCH ×3 (09:28→21:21)
[2020-08-08] MEDS: Sucralfate 1 GM TABLET PO SCH ×4 (09:28→21:21)
[2020-08-08 11:27] LABS: Magnesium 1.7 mg/dL (1.6-2.6); Phosphorous 2.8 mg/dL (2.7-4.5)
[2020-08-08] MEDS: Potassium Chloride Elixir 20 MEQ/15 ML UDC PO SCH ×2 (12:01→15:49)
[2020-08-08] MEDS: Acetaminophen 325 MG TABLET PO PRN (21:29)
[2020-08-09] MEDS: Ondansetron 4 MG/2 ML VIAL IVP SCH ×3 (01:57→15:09)
[2020-08-09] MEDS: *HR* Heparin 5,000 UNIT/ML VIAL SQ SCH ×3 (05:48→20:50)
[2020-08-09] MEDS: Piperacillin/Tazobactam 3.375 GM in 0.9 % Sodium Chloride Mini Bag 100 ML IVPB SCH (05:48)
[2020-08-09] MEDS: Pantoprazole 40 MG VIAL IVP SCH ×2 (05:49→18:02)
[2020-08-09 05:55] LABS: Basophils # 0.1 K/mcL (0.0-0.2); Basophils % 0.2 %; Eosinophils % 0.1 %; Hemoglobin 10.1 g/dL (11.5-15.4); Immature Granulocytes % 0.7 % (0-4); Lymphocytes # 0.6 K/mcL (0.6-4.6); Lymphocytes % 2.7 %; Mean Corpuscular HGB Conc 30.6 g/dL (31.6-35.5); Mean Corpuscular Hemoglobin 28.8 pg (28.0-33.3); Mean Platelet Volume 11.1 fL (9.4-12.4); Monocytes # 1.6 K/mcL (0.0-1.3); Monocytes % 7.4 %; Neutrophils # 19.6 K/mcL (1.6-8.9); Platelet Count 308 K/mcL (140-400); Red Blood Count 3.51 M/mcL (3.82-4.97); Red Cell Distribution Width 13.2 % (11.5-14.5); Segmented Neutrophils % 88.9 %; White Blood Count 22.1 K/mcL (4.3-11.1)
[2020-08-09 06:08] LABS: BUN/Creatinine Ratio 13 (6-26); Blood Urea Nitrogen 7 mg/dL (8-23); Calcium 8.1 mg/dL (8.6-10.3); Carbon Dioxide 21 mEq/L (23-29); Chloride 107 mEq/L (98-107); Glucose 100 mg/dL (70-105); Osmolality,Calculated 278 (280-300); Potassium 3.6 mEq/L (3.5-5.1); Sodium 135 mEq/L (136-145); eGFR For African Americans > 60 (> 60); eGFR For Non-African Americans > 60 (> 60)
[2020-08-09 06:11] LABS: Magnesium 1.6 mg/dL (1.6-2.6); Phosphorous 2.1 mg/dL (2.7-4.5)
[2020-08-09] MEDS: MetroNIDAZOLE 500 MG/100 ML 500 MG/100 ML BAG IVPB SCH ×3 (09:01→23:29)
[2020-08-09] MEDS: Sucralfate 1 GM TABLET PO SCH ×4 (09:01→20:51)
[2020-08-09] MEDS: 0.9 % Sodium Chloride 1,000 ML IVC SCH ×2 (09:01→18:02)
[2020-08-09] MEDS: Vancomycin Oral Soln 125 MG/2.5 ML UDC PO SCH ×4 (09:02→20:50)
[2020-08-09] MEDS: Gabapentin 100 MG CAPSULE PO SCH ×3 (09:03→20:50)
[2020-08-09] MEDS: *HR* HYDROcodone/Acet 5/325 mg TABLET PO PRN (18:03)
[2020-08-09] MEDS: Metoclopramide 10 MG/2 ML VIAL IVP PRN (19:14)
[2020-08-10] MEDS: Acetaminophen 325 MG TABLET PO PRN (02:43)
[2020-08-10] MEDS: 0.9 % Sodium Chloride 1,000 ML IVC SCH ×2 (04:58→15:00)
[2020-08-10 05:54] LABS: Basophils # 0.1 K/mcL (0.0-0.2); Basophils % 0.2 %; Eosinophils % 0.1 %; Hematocrit 30.6 % (35.3-44.9); Hemoglobin 9.5 g/dL (11.5-15.4); Immature Granulocytes % 0.9 % (0-4); Lymphocytes # 0.7 K/mcL (0.6-4.6); Lymphocytes % 3.3 %; Mean Corpuscular Hemoglobin 29.5 pg (28.0-33.3); Mean Platelet Volume 10.2 fL (9.4-12.4); Monocytes # 1.3 K/mcL (0.0-1.3); Monocytes % 6.4 %; Neutrophils # 18.7 K/mcL (1.6-8.9); Platelet Count 319 K/mcL (140-400); Red Blood Count 3.22 M/mcL (3.82-4.97); Red Cell Distribution Width 13.1 % (11.5-14.5); Segmented Neutrophils % 89.1 %
[2020-08-10 06:11] LABS: BUN/Creatinine Ratio 14 (6-26); Blood Urea Nitrogen 6 mg/dL (8-23); Calcium 7.8 mg/dL (8.6-10.3); Carbon Dioxide 22 mEq/L (23-29); Chloride 110 mEq/L (98-107); Glucose 88 mg/dL (70-105); Magnesium 1.4 mg/dL (1.6-2.6); Osmolality,Calculated 285 (280-300); Phosphorous 2.7 mg/dL (2.7-4.5); Potassium 3.1 mEq/L (3.5-5.1); Sodium 139 mEq/L (136-145); eGFR For African Americans > 60 (> 60); eGFR For Non-African Americans > 60 (> 60)
[2020-08-10] MEDS: Pantoprazole 40 MG VIAL IVP SCH ×2 (06:23→17:33)
[2020-08-10] MEDS: *HR* Heparin 5,000 UNIT/ML VIAL SQ SCH ×3 (06:23→21:38)
[2020-08-10] MEDS: Ondansetron 4 MG/2 ML VIAL IVP PRN ×3 (08:54→21:39)
[2020-08-10] MEDS: MetroNIDAZOLE 500 MG/100 ML 500 MG/100 ML BAG IVPB SCH ×2 (08:58→16:37)
[2020-08-10] MEDS: Vancomycin Oral Soln 125 MG/2.5 ML UDC PO SCH ×4 (09:57→20:11)
[2020-08-10] MEDS: Potassium Chloride Elixir 20 MEQ/15 ML UDC PO SCH ×2 (09:59→12:54)
[2020-08-10] MEDS: Gabapentin 100 MG CAPSULE PO SCH ×3 (10:00→20:08)
[2020-08-10] MEDS: Sucralfate 1 GM TABLET PO SCH ×4 (10:00→21:38)
[2020-08-10] MEDS: Metoclopramide 10 MG/2 ML VIAL IVP PRN (11:03)
[2020-08-10] MEDS ORDERED: *HR* Promethazine 25 MG/ML VIAL IM ONE (16:38)
[2020-08-11] MEDS: 0.9 % Sodium Chloride 1,000 ML IVC SCH ×2 (00:17→10:29)
[2020-08-11] MEDS: MetroNIDAZOLE 500 MG/100 ML 500 MG/100 ML BAG IVPB SCH ×3 (00:18→15:46)
[2020-08-11] MEDS: *HR* HYDROcodone/Acet 5/325 mg TABLET PO PRN ×2 (01:53→09:24)
[2020-08-11 05:36] LABS: Basophils % 0.2 %; Eosinophils # 0.2 K/mcL (0.0-0.6); Eosinophils % 1.3 %; Hematocrit 30.1 % (35.3-44.9); Hemoglobin 9.4 g/dL (11.5-15.4); Immature Granulocytes % 0.7 % (0-4); Lymphocytes # 1.2 K/mcL (0.6-4.6); Lymphocytes % 7.1 %; Mean Corpuscular HGB Conc 31.2 g/dL (31.6-35.5); Mean Corpuscular Hemoglobin 28.7 pg (28.0-33.3); Mean Platelet Volume 9.9 fL (9.4-12.4); Monocytes # 0.8 K/mcL (0.0-1.3); Monocytes % 5.1 %; Platelet Count 350 K/mcL (140-400); Red Blood Count 3.27 M/mcL (3.82-4.97); Red Cell Distribution Width 13.2 % (11.5-14.5); Segmented Neutrophils % 85.6 %; White Blood Count 16.4 K/mcL (4.3-11.1)
[2020-08-11 05:55] LABS: BUN/Creatinine Ratio 11 (6-26); Blood Urea Nitrogen 4 mg/dL (8-23); Calcium 7.5 mg/dL (8.6-10.3); Carbon Dioxide 22 mEq/L (23-29); Chloride 111 mEq/L (98-107); Glucose 99 mg/dL (70-105); Magnesium 1.7 mg/dL (1.6-2.6); Osmolality,Calculated 283 (280-300); Phosphorous 2.4 mg/dL (2.7-4.5); Potassium 3.2 mEq/L (3.5-5.1); Sodium 138 mEq/L (136-145); eGFR For African Americans > 60 (> 60); eGFR For Non-African Americans > 60 (> 60)
[2020-08-11] MEDS: *HR* Heparin 5,000 UNIT/ML VIAL SQ SCH ×3 (06:58→21:32)
[2020-08-11] MEDS: Pantoprazole 40 MG VIAL IVP SCH ×2 (06:58→17:30)
[2020-08-11] MEDS: Sucralfate 1 GM TABLET PO SCH ×4 (07:04→21:31)
[2020-08-11] MEDS ORDERED: Potassium Chloride 40 MEQ, Lidocaine 1% 2 ML in 0.9 % Sodium Chloride 500 ML IVPB ONE (07:42)
[2020-08-11] MEDS: Vancomycin Oral Soln 125 MG/2.5 ML UDC PO SCH ×4 (09:15→21:31)
[2020-08-11] MEDS: Gabapentin 100 MG CAPSULE PO SCH ×3 (09:16→21:31)
[2020-08-11] MEDS: Ondansetron 4 MG/2 ML VIAL IVP PRN ×2 (09:25→21:32)
[2020-08-11] MEDS: Metoclopramide 10 MG/2 ML VIAL IVP PRN (12:16)
[2020-08-12] MEDS: MetroNIDAZOLE 500 MG/100 ML 500 MG/100 ML BAG IVPB SCH ×3 (00:40→15:24)
[2020-08-12] MEDS: Metoclopramide 10 MG/2 ML VIAL IVP PRN (02:43)
[2020-08-12] MEDS: Acetaminophen 325 MG TABLET PO PRN ×3 (02:43→22:38)
[2020-08-12] MEDS: Ondansetron 4 MG/2 ML VIAL IVP PRN ×2 (05:45→22:39)
[2020-08-12] MEDS: Pantoprazole 40 MG VIAL IVP SCH (05:45)
[2020-08-12] MEDS: *HR* Heparin 5,000 UNIT/ML VIAL SQ SCH ×3 (05:45→22:10)
[2020-08-12 06:00] LABS: Basophils % 0.4 %; Eosinophils # 0.3 K/mcL (0.0-0.6); Eosinophils % 3.2 %; Hematocrit 32.3 % (35.3-44.9); Hemoglobin 9.7 g/dL (11.5-15.4); Immature Granulocytes % 0.6 % (0-4); Lymphocytes # 1.2 K/mcL (0.6-4.6); Lymphocytes % 11.6 %; Mean Corpuscular Hemoglobin 28.3 pg (28.0-33.3); Mean Corpuscular Volume 94.2 fL (83.0-100.0); Mean Platelet Volume 9.7 fL (9.4-12.4); Monocytes # 0.7 K/mcL (0.0-1.3); Monocytes % 6.4 %; Neutrophils # 8.2 K/mcL (1.6-8.9); Platelet Count 388 K/mcL (140-400); Red Blood Count 3.43 M/mcL (3.82-4.97); Red Cell Distribution Width 13.4 % (11.5-14.5); Segmented Neutrophils % 77.8 %; White Blood Count 10.5 K/mcL (4.3-11.1)
[2020-08-12 06:27] LABS: BUN/Creatinine Ratio 8 (6-26); Blood Urea Nitrogen 3 mg/dL (8-23); Calcium 7.5 mg/dL (8.6-10.3); Carbon Dioxide 22 mEq/L (23-29); Chloride 109 mEq/L (98-107); Glucose 95 mg/dL (70-105); Osmolality,Calculated 282 (280-300); Potassium 3.5 mEq/L (3.5-5.1); Sodium 138 mEq/L (136-145); eGFR For African Americans > 60 (> 60); eGFR For Non-African Americans > 60 (> 60)
[2020-08-12] MEDS: Vancomycin Oral Soln 125 MG/2.5 ML UDC PO SCH ×4 (08:14→22:09)
[2020-08-12] MEDS: Sucralfate 1 GM TABLET PO SCH ×4 (08:15→22:09)
[2020-08-12] MEDS: 0.9 % Sodium Chloride 1,000 ML IVC SCH (08:15)
[2020-08-12] MEDS: Gabapentin 100 MG CAPSULE PO SCH ×3 (08:15→22:08)
[2020-08-13] MEDS: MetroNIDAZOLE 500 MG/100 ML 500 MG/100 ML BAG IVPB SCH ×3 (06:28→15:06)
[2020-08-13] MEDS: *HR* Heparin 5,000 UNIT/ML VIAL SQ SCH ×3 (06:29→22:06)
[2020-08-13] MEDS: Ondansetron 4 MG/2 ML VIAL IVP PRN ×2 (07:14→16:54)
[2020-08-13 08:08] LABS: Magnesium 1.5 mg/dL (1.6-2.6); Phosphorous 2.5 mg/dL (2.7-4.5)
[2020-08-13 08:38] LABS: Basophils % 0.3 %; Eosinophils # 0.2 K/mcL (0.0-0.6); Eosinophils % 2.6 %; Hemoglobin 10.7 g/dL (11.5-15.4); Immature Granulocytes % 0.7 % (0-4); Lymphocytes % 13.7 %; Mean Corpuscular HGB Conc 31.5 g/dL (31.6-35.5); Mean Corpuscular Hemoglobin 28.4 pg (28.0-33.3); Mean Corpuscular Volume 90.2 fL (83.0-100.0); Mean Platelet Volume 9.5 fL (9.4-12.4); Monocytes # 0.6 K/mcL (0.0-1.3); Monocytes % 7.8 %; Neutrophils # 5.7 K/mcL (1.6-8.9); Platelet Count 414 K/mcL (140-400); Red Blood Count 3.77 M/mcL (3.82-4.97); Red Cell Distribution Width 13.3 % (11.5-14.5); Segmented Neutrophils % 74.9 %; White Blood Count 7.6 K/mcL (4.3-11.1)
[2020-08-13 08:59] LABS: BUN/Creatinine Ratio 12 (6-26); Blood Urea Nitrogen 4 mg/dL (8-23); Calcium 7.7 mg/dL (8.6-10.3); Carbon Dioxide 24 mEq/L (23-29); Chloride 106 mEq/L (98-107); Glucose 93 mg/dL (70-105); Magnesium 1.5 mg/dL (1.6-2.6); Osmolality,Calculated 279 (280-300); Phosphorous 2.9 mg/dL (2.7-4.5); Potassium 3.3 mEq/L (3.5-5.1); Sodium 136 mEq/L (136-145); eGFR For African Americans > 60 (> 60); eGFR For Non-African Americans > 60 (> 60)
[2020-08-13] MEDS: Sucralfate 1 GM TABLET PO SCH ×4 (09:11→22:04)
[2020-08-13] MEDS: Gabapentin 100 MG CAPSULE PO SCH ×3 (09:11→22:04)
[2020-08-13] MEDS: Vancomycin Oral Soln 125 MG/2.5 ML UDC PO SCH ×4 (09:11→22:04)
[2020-08-13] MEDS: 0.9 % Sodium Chloride 1,000 ML IVC SCH (15:07)
[2020-08-13] MEDS: Acetaminophen 325 MG TABLET PO PRN (22:04)
[2020-08-13] MEDS: Metoclopramide 10 MG/2 ML VIAL IVP PRN (22:09)
[2020-08-14] MEDS: Ondansetron 4 MG/2 ML VIAL IVP PRN (05:58)
[2020-08-14] MEDS: *HR* Heparin 5,000 UNIT/ML VIAL SQ SCH ×3 (05:59→22:47)
[2020-08-14 06:45] LABS: Basophils % 0.5 %; Eosinophils # 0.2 K/mcL (0.0-0.6); Eosinophils % 2.8 %; Hematocrit 37.1 % (35.3-44.9); Hemoglobin 11.6 g/dL (11.5-15.4); Immature Granulocytes % 0.8 % (0-4); Lymphocytes # 1.6 K/mcL (0.6-4.6); Lymphocytes % 25.2 %; Mean Corpuscular HGB Conc 31.3 g/dL (31.6-35.5); Mean Corpuscular Hemoglobin 28.5 pg (28.0-33.3); Mean Corpuscular Volume 91.2 fL (83.0-100.0); Mean Platelet Volume 9.6 fL (9.4-12.4); Monocytes # 0.5 K/mcL (0.0-1.3); Platelet Count 444 K/mcL (140-400); Red Blood Count 4.07 M/mcL (3.82-4.97); Red Cell Distribution Width 13.4 % (11.5-14.5); Segmented Neutrophils % 62.7 %; White Blood Count 6.3 K/mcL (4.3-11.1)
[2020-08-14 07:05] LABS: BUN/Creatinine Ratio 11 (6-26); Blood Urea Nitrogen 4 mg/dL (8-23); Calcium 7.8 mg/dL (8.6-10.3); Carbon Dioxide 20 mEq/L (23-29); Chloride 105 mEq/L (98-107); Glucose 82 mg/dL (70-105); Magnesium 1.6 mg/dL (1.6-2.6); Osmolality,Calculated 280 (280-300); Phosphorous 3.1 mg/dL (2.7-4.5); Potassium 3.4 mEq/L (3.5-5.1); Sodium 137 mEq/L (136-145); eGFR For African Americans > 60 (> 60); eGFR For Non-African Americans > 60 (> 60)
[2020-08-14] MEDS: 0.9 % Sodium Chloride 1,000 ML IVC SCH (10:02)
[2020-08-14] MEDS: Gabapentin 100 MG CAPSULE PO SCH ×3 (10:03→22:47)
[2020-08-14] MEDS: Sucralfate 1 GM TABLET PO SCH ×4 (10:03→22:46)
[2020-08-14] MEDS: Lactobacillus 1 EACH CAP.SPRINK PO SCH ×2 (10:20→22:46)
[2020-08-14] MEDS: Vancomycin Oral Soln 125 MG/2.5 ML UDC PO SCH ×4 (10:20→22:47)
[2020-08-14] MEDS: Famotidine 20 MG TABLET PO SCH (17:06)
[2020-08-14] MEDS: *HR* HYDROcodone/Acet 5/325 mg TABLET PO PRN (22:53)
[2020-08-15 03:23] LABS: Basophils % 0.5 %; Eosinophils # 0.2 K/mcL (0.0-0.6); Eosinophils % 3.7 %; Hematocrit 33.2 % (35.3-44.9); Hemoglobin 10.5 g/dL (11.5-15.4); Immature Granulocytes % 0.8 % (0-4); Lymphocytes # 1.5 K/mcL (0.6-4.6); Lymphocytes % 25.7 %; Mean Corpuscular HGB Conc 31.6 g/dL (31.6-35.5); Mean Corpuscular Hemoglobin 28.3 pg (28.0-33.3); Mean Corpuscular Volume 89.5 fL (83.0-100.0); Mean Platelet Volume 10.3 fL (9.4-12.4); Monocytes # 0.7 K/mcL (0.0-1.3); Monocytes % 12.5 %; Neutrophils # 3.4 K/mcL (1.6-8.9); Platelet Count 309 K/mcL (140-400); Red Blood Count 3.71 M/mcL (3.82-4.97); Red Cell Distribution Width 13.4 % (11.5-14.5); Segmented Neutrophils % 56.8 %; White Blood Count 5.9 K/mcL (4.3-11.1)
[2020-08-15 03:40] LABS: BUN/Creatinine Ratio 8 (6-26); Blood Urea Nitrogen 3 mg/dL (8-23); Calcium 7.5 mg/dL (8.6-10.3); Carbon Dioxide 24 mEq/L (23-29); Chloride 105 mEq/L (98-107); Glucose 96 mg/dL (70-105); Osmolality,Calculated 276 (280-300); Potassium 3.2 mEq/L (3.5-5.1); Sodium 135 mEq/L (136-145); eGFR For African Americans > 60 (> 60); eGFR For Non-African Americans > 60 (> 60)
[2020-08-15] MEDS: *HR* Heparin 5,000 UNIT/ML VIAL SQ SCH ×2 (06:52→12:40)
[2020-08-15] MEDS: Famotidine 20 MG TABLET PO SCH (06:54)
[2020-08-15] MEDS ORDERED: Potassium Chloride 40 MEQ, Lidocaine 1% 2 ML in 0.9 % Sodium Chloride 500 ML IVPB ONE (08:06)
[2020-08-15] MEDS: Vancomycin Oral Soln 125 MG/2.5 ML UDC PO SCH ×2 (08:13→12:40)
[2020-08-15] MEDS: Gabapentin 100 MG CAPSULE PO SCH (08:13)
[2020-08-15] MEDS: Lactobacillus 1 EACH CAP.SPRINK PO SCH (08:13)
[2020-08-15] MEDS: Sucralfate 1 GM TABLET PO SCH ×2 (08:13→11:11)
[2020-08-15 10:18] VITALS: BP 137/67
== END 2020-08-15 15:50 | disposition home or self-care (01) | DRG 392 ==
LOC: 3ANU 11:19 → EMEROOARM 11:19 → SUATTDRO 16:24 → 3ANU 17:24 → SUATTDRO 08-06 13:35
PROVIDERS: ADMIT Internal Medicine; ATTEND Internal Medicine